=== PATIENT | female | born 2000 | race African-American/Black ===

== ENCOUNTER 2024-07-24 23:44 | Emergency (ER) | payer MEDICAID, SELFPAY ==
[2024-07-24 23:45] VITALS: BP 143/94; PULSE 79; RESP 16; TEMP 36.2; O2SAT 98; BMI 40.2
--- NOTE | 2024-07-25 00:23 | CT_ITS ---
PROCEDURE: STROKE CTA HEAD AND NECK W/CON 07/25/2024 REASON FOR EXAM: TRANSIENT EPISDOE OF CONFUSION TECHNIQUE: CTA imaging of the head and neck from the aortic arch to the skull vertex with out constrast and with intravenous contrast. Coronal and Sagittal reconstruction series were provided. 3D post processing with reformations, Maximum intensity projection (MIPs) Volume rendering and Shaded surface rendering was provided. CONTRAST: 100 cc Isovue 370 IV One or more dose reduction techniques were used (e.g., Automated exposure control, adjustment of the mA and/or kV according to patient size, use of iterative reconstruction technique). RADIATION DOSE SUMMARY: CTDlvol: 86 mGy DLP: 1482.79 mGycm COMPARISON: None available FINDINGS: Noncontrast head CT: No intracranial hemorrhage, mass effect or CT evidence of large vascular territory acute infarct. The ventricles are within limits and midline. CSF spaces appear within limits. The paranasal sinuses, mastoids and orbits appear within limits. CTA head and neck: [place] artifact from right-sided bolus. Motion artifact at the aortic arch with the arch and standard three-vessel origin appearing within limits as visualized. The vertebral arteries arise from the right brachiocephalic and left subclavian as expected and appear codominant. The cervical vertebrals are patent throughout with both contributing to the basilar artery. The right and left common, internal and external carotid arteries appear within limits without flow significant stenosis or dissection. The anterior, posterior and middle cerebral circulations appear intact. No vessel cut off, flow significant stenosis or aneurysm identified. Major dural venous sinuses appear within limits. Visualized upper lungs appear clear. CT/STROKE CTA Head AND Neck W/Con IMPRESSION: No intracranial hemorrhage, mass effect or CT evidence of large vascular territ ory acute infarct. CTA of the head and neck appears intact without flow significant stenosis, diss ection, aneurysm or vessel cut off as above. Findings discussed by phone by myself with Dr. Mcfarland at 1:30 a.m. 07/25/2024 Reading Location: [id number]
--- NOTE | 2024-07-25 00:24 | EX.ED.DYSGE1 ---
HPI History of Present Illness Chief Complaint: Confusion Informant: patient and spouse/S.O. Narrative Narrative: Patient is 23-year-old female that denies any significant past medical history presenting for an episode of confusion and unable to get her words out. Patient does report that she had a similar episode either in March 2024 or April of this year. At that time she went to [facility] emergency room where they did lab work and a CT of her brain. She states that they said everything was normal and recommend she follow-up with her primary care doctor. She does admit that she never followed up. Patient states she was driving home from work today and when she parked at her house and was getting out she started to feel confused. She states she was thinking about everything else. She went to the bathroom and afterwards when she went to her room she tried to talk to her boyfriend but could not get any words out. She states she just felt confused. She then she was able to say yes or no and then her speech slowly returned. No report of any slurring of her speech. No associated numbness or tingling. No tremor reported. No vision change. No syncope. She does state she had a stressful day at work but did not think it was overly stressful to cause symptoms like this. She does not take any medications. She denies any new supplements. Denies any family history of any neurologic issues. Feels that she is returned to baseline. Denies any associated headache. Came in for further evaluation given that this is the second time is happening and it was very alarming to her. [facility] Medical History no medical history Home Medications ?Medication ?Instructions ?Recorded ?Last Taken ?Type NK 07/25/24 Unknown History Allergy/AdvReac Type Severity Reaction Status Date / Time No Known Allergies Allergy Verified 07/24/24 23:47 Social History Smoking Status: Never smoker ROS ROS ED Constitutional Constitutional ED: Denies chills or fever(s) Eyes Eyes: Denies blurry vision or change in vision Cardiovascular Cardiovascular: Denies chest pain Respiratory/Chest Respiratory/Chest: Denies cough Gastrointestinal Gastrointestinal: Denies abdominal pain, nausea or vomiting Musculoskeletal Musculoskeletal: Denies arthralgias or myalgias Integumentary Denies rash Neurologic Neurologic: Reports other Details: episode of confusion, speech changes ; Denies headache(s), paresthesias or weakness Psychiatric Psychiatric: Denies anxiety or depression EXAM Physical Exam Const Vital Signs: 07/24/24 23:45 07/25/24 01:45 Temperature 97.1 F L Temperature Source Oral Pulse Rate 79 57 L Respiratory Rate 16 18 Blood Pressure 143/94 H 138/99 H Blood Pressure Mean 110 112 Pulse Ox 98 99 Oxygen Delivery Method Room Air Room Air Positive well nourished and well developed General Appearance ED: well developed and NAD HEENT Reports moist mucous membranes Eyes PERRL Neck supple and no JVD Neck Narrative: No nuchal rigidity Chest Wall inspection of chest normal Resp normal respiratory effort and clear to auscultation bilaterally Cardio regular rate, regular rhythm and no murmurs GI normal to inspection, nondistended, normoactive bowel sounds and non-tender Extremity normal to inspection General Extremety ED: Negative for edema General Extremity: Negative for edema Neuro oriented x3, CN's II-XII intact bilaterally and no sensory deficits noted Neuro Narrative: Patient is normal neurologic exam. NIH equals 0. Normal coordination. No tremor appreciated. Sensorium / Orientation: alert Sensory Exam: No sensory level loss detected Motor Exam: strength 5/5 throughout; Negative for general weakness Psych mental status grossly normal Mood & Affect: Negative for depressed or anxious Skin no rashes or lesions noted MDM MDM MDM Narrative Medical decision making narrative: Patient evaluated for an episode of confusion and difficulty speaking. States she has similar episode 3 to 4 months ago and was seen at [facility] emergency room. She reports that she had a workup including CT of the brain and blood work however [facility] do not see any records of a visit. Differential includes anxiety reaction, focal seizure, electrolyte abnormality, thyroid abnormality, arrhythmia and less likely ischemic stroke. Workup largely normal. Patient is mild anemia with hemoglobin 11.4. Do not think her symptoms are related to this however. BMP normal. TSH normal. CTA of the head neck does not show any acute process. Patient does go on to tell me that she did have a particularly stressful day at work compared to normal. Discussed that this could have been a stress response however this is a diagnosis of exclusion. Given that she has had 2 episodes we will give referral for neurology. At this time I do feel that she is safe for outpatient follow-up and does not require admission for this workup. Do not think this was a TIA based on her HPI. She notes that she is off tomorrow so she can rest. Given return precautions. Discharged home in stable condition. Cam's follow-up with your primary care doctor Lab Data Attestation: I reviewed the patient's lab results. Labs: Laboratory Results - last 24 hr 07/25/24 07/25/24 00:52 02:07 WBC 9.7 RBC 4.08 L Hgb 11.4 L Hct 35.5 L MCV 87.0 MCH 27.9 MCHC 32.1 RDW Std Deviation 41.7 RDW Coeff of Mishel 13.3 Plt Count 239 MPV 11.4 Immature Gran % (Auto) 0.300 Neut % (Auto) 48.8 Lymph % (Auto) 40.1 [place] % (Auto) 7.7 Eos % (Auto) 2.7 Baso % (Auto) 0.4 Absolute Neuts (auto) 4.7 Absolute Lymphs (auto) 3.89 Nucleated RBC % 0 Sodium 135 Potassium 4.3 Chloride 103 Carbon Dioxide 22.2 Anion Gap 10 BUN 13 Creatinine 0.71 Estim Creat Clear Calc 134.97 Est GFR (MDRD) Non-Af 122 BUN/Creatinine Ratio 18.3 Glucose 86 Calcium 9.3 TSH 3.260 Radiography Diagnostic Testing: Clinical Impression(s) from Imaging Studies Head/Neck CTA 07/25/24 00:23 IMPRESSION: No intracranial hemorrhage, mass effect or CT evidence of large vascular territory acute infarct. CTA of the head and neck appears intact without flow significant stenosis, dissection, aneurysm or vessel cut off as above. Findings discussed by phone by myself with Dr. Mcfarland at 1:30 a.m. 07/25/2024 Reading Location: [facility] Discharge Plan Triage Chief Complaint: Confusion ED Provider: Gema Hernandez Dx/Rx/DC Orders Clinical Impression: Transient alteration of awareness Instructions: ED ALOC, ED Confusion Prescriptions: No Action NK Stand Alone Forms: ED Work / School Excuse Primary Care Provider: Care Physician,No Primary Referrals: Ramón Alvarez DO [Non-Staff] - Rachid Rendon MD [Non-Staff -Ordering Privileges] - NOT,DEFINED [Non-Staff] - Activity Restrictions/Additional Instructions: Patient drinking plenty of fluids. Your workup today was largely normal. At this time we feel like it is safe for you to follow-up outpatient with your family doctor. If you do not have 1 you were given referral for 1. He also given referral for neurology given you have had 2 episodes like this. Print Language: Japanese Disposition Disposition: Home, Self Care
[2024-07-25 01:45] VITALS: BP 138/99; PULSE 57; RESP 18; O2SAT 99
[2024-07-25 02:07] LABS: Absolute Lymphocyte Count 3.89 X10^3/uL (0.83-4.51); Absolute Neutrophil Count 4.7 X10^3/uL (2.0-7.7); Basophil# 0.04 X10^3/uL; Basophil% 0.4 % (0-1); Eosinophil# 0.26 X10^3/uL; Eosinophils% 2.7 % (0-5); Hematocrit 35.5 % (37-47); Hemoglobin 11.4 g/dL (12.0-15.0); Lymphocyte # 3.89 X10^3/ul (0.83-4.51); Lymphocyte % 40.1 % (19-41); Mean Corp Hgb Conc 32.1 g/dL (32-36); Mean Corpuscular Hgb 27.9 pg (27.0-32.0); Mean Platelet Vol. 11.4 fl (6.2-12.0); Monocyte# 0.75 X10^3/uL; Monocyte% 7.7 % (0-10); NRBC Flagged by Analyzer 0 % (0-5); Neutrophil # 4.73 X10^3/uL (2.7-7.7); Neutrophil % 48.8 % (47-70); Platelet Count 239 K/mm3 (150-450); RBC Distribution Width CV 13.3 % (11.6-14.6); RBC Distribution Width SD 41.7 fl (35.1-43.9); Red Blood Count 4.08 M/mm3 (4.2-5.4); White Blood Count 9.7 K/mm3 (4.4-11.0)
[2024-07-25 02:31] LABS: Anion Gap 10 (5-15); BUN 13 mg/dL (4-19); BUN/Creat Ratio 18.3 RATIO (10-20); Calcium,Total 9.3 mg/dL (7.6-11.0); Carbon Dioxide 22.2 mmol/L (21.0-32.0); Chloride 103 mmol/L (98-108); Creatinine, Serum 0.71 mg/dL (0.70-1.20); EST Glomerular Filtration Rate 122 (>60); Estimated Creatinine Clearance 134.97 ml/min (50-250); Glucose 86 mg/dL (70-99); Potassium 4.3 mmol/L (3.3-5.1); Sodium Level 135 mmol/L (133-145)
[2024-07-25 03:09] VITALS: BP 138/81; PULSE 85; RESP 15; TEMP 36.6; O2SAT 96
== END 2024-07-25 03:13 | disposition home or self-care (01) ==
PROVIDERS: Emergency Provider Emergency Medicine; Visit Provider Emergency Medicine
DX: R40.4 Transient alteration of awareness (principal); Z56.6 Other physical and mental strain related to work; D64.9 Anemia, unspecified
CPT/HCPCS: 70496; 70498; 80048; 84443; 85025; 99283; Q9967; A4216

== ENCOUNTER 2025-03-29 01:07 | Emergency (ER) | payer SELFPAY ==
[2025-03-29 01:08] VITALS: BP 146/73; PULSE 67; RESP 18; TEMP 36.9; O2SAT 100; BMI 44.0
--- NOTE | 2025-03-29 01:38 | CT_ITS ---
PROCEDURE: BRAIN/HEAD WITHOUT CONTRAST 03/29/2025 REASON FOR EXAM: PAIN TECHNIQUE: Procedure Code: CTBR Modality: CT Procedure: BRAIN/HEAD WITHOUT CONTRAST Coronal and Sagittal reconstruction series were provided. One or more dose reduction techniques were used (e.g., Automated exposure control, adjustment of the mA and/or kV according to patient size, use of iterative reconstruction technique. RADIATION DOSE SUMMARY: CTDI Vol 44.99 mGy DLP :846.73 mGycm COMPARISON: 25-Jul-2024 CT report FINDINGS: The visualized brain parenchyma shows normal appearance. No focal parenchymal abnormalities are demonstrated. Huang-white matter differentiation is maintained. Normal CT appearance of the posterior fossa structures. No intracerebral or extra-axial hemorrhage. Faint high fronto-parietal sulcal densities, possibly artifactual. No midline shifts or deformity. Normal size and configuration of the cerebral ventricles. No definite calvarial fractures. The osseous structures in the skull base are unremarkable. Scanned paranasal sinuses are unremarkable. CT/Brain/Head without Contrast IMPRESSION: No intracerebral or extra-axial hemorrhage. No acute territorial cerebrovascular abnormalities. If clinical symptoms persis t, further evaluation with MRI may be considered as clinically warranted. Reading [facility]
[2025-03-29] MEDS: 0.9% Normal Saline (1000mL) 1,000 ML 999 ML IV (02:00)
[2025-03-29 02:27] LABS: Hematocrit 37.3 % (37-47); Hemoglobin 11.5 g/dL (12.0-15.0); Immature Granulocytes Count 0.050 X10^3/uL (0.0-0.0); Mean Corp Hgb Conc 30.8 g/dL (32-36); Mean Corpuscular Volume 88.4 fL (81-99); Mean Platelet Vol. 10.9 fl (6.2-12.0); NRBC Flagged by Analyzer 0 % (0-5); Platelet Count 264 K/mm3 (150-450); RBC Distribution Width CV 14.1 % (11.6-14.6); RBC Distribution Width SD 45.5 fl (35.1-43.9); Red Blood Count 4.22 M/mm3 (4.2-5.4); White Blood Count 12.6 K/mm3 (4.4-11.0)
--- NOTE | 2025-03-29 02:45 | EDS_ITS ---
HPI History of Present Illness Chief Complaint: Headache Narrative Narrative: Patient was seen and examined after presenting to ED for feeling like she is in a fog is having some changes to her vision mostly blurred vision she reports that this has been ongoing for a few weeks her significant other who is present with her in the room states that she has also been having off-and-on headaches not thunderclap in nature not the worst headache of her life but she has been having headaches. PFSH PFSH Medical History no medical history Home Medications ?Medication ?Instructions ?Recorded ?Last Taken ?Type NK 07/25/24 Unknown History Allergy/AdvReac Type Severity Reaction Status Date / Time No Known Allergies Allergy Verified 03/29/25 01:11 Surgical History no surgical history Social History Smoking Status: Never smoker ROS ROS ED ROS Narrative Pertinent Positives: Blurred vision headaches feeling like she is in a fog Pertinent Negatives: Trauma fevers chills neck pain or stiffness difficulty swallowing dropping things numbness tingling speech changes nausea vomiting body aches The remainder of review of systems negative unless otherwise stated in the HPI above. Systems reviewed including constitutional, psychiatric, cardiovascular, respiratory, integument, HENT, gastrointestinal. EXAM Physical Exam Narrative Exam Narrative: Afebrile hemodynamically stable does not appear toxic or in distress normocephalic atraumatic pupils equal round reactive to light EOMI. No nystagmus. Normal range of motion of the head and neck. No focal neurodeficits speech is clear moves all EXTR extremities appropriately no cerebellar signs Const Vital Signs: 03/29/25 01:08 Temperature 98.4 F Temperature Source Oral Pulse Rate 67 Respiratory Rate 18 Blood Pressure 146/73 H Blood Pressure Mean 97 Pulse Ox 100 Oxygen Delivery Method Room Air MDM MDM MDM Narrative Medical decision making narrative: Nursing notes, triage notes, available previous documentation, and vital signs were reviewed. Any discrepancies noted were addressed. Differential Diagnoses: Not meningitis not intracranial bleed such as subarachnoid hemorrhage we will evaluate for any evidence of a mass does not seem like he was trauma related to either she does not have a seizure history no family history of seizures either does not describe ever having a postictal state Interventions: Fluids Given: 1 L normal saline Labs Reviewed: Slight leukocytosis 12.6 hemoglobin 11.5 platelets are 264. No electrolyte abnormality or renal insufficiency she is not Imaging Reviewed: Personally reviewed and interpreted by me: CT of the head I do not see any obvious intracranial bleed I do not see any obvious mass either. Official interpretation for CT of the head without acute pathology Previous Documentation Reviewed: None available or applicable at this time. ED Course: Patient presenting with symptoms as described above we are getting some labs for checking a CT of the head barring a significant findings patient will be given referral to neurology outpatient she can also follow-up with her primary care. Patient's workup was fairly unremarkable besides a slight leukocytosis she will receive a referral to neurology return precautions follow-up recommendations provided she is stable for discharge home. This note was made utilizing voice recognition software. All attempts were made to correct spelling or other errors prior to note completion. However, due to the fast-paced nature of emergency medicine, some errors may still be present. Lab Data Labs: Laboratory Results - last 24 hr 03/29/25 02:20 WBC 12.6 H RBC 4.22 Hgb 11.5 L Hct 37.3 MCV 88.4 MCH 27.3 MCHC 30.8 L RDW Std Deviation 45.5 H RDW Coeff of Mishel 14.1 Plt Count 264 MPV 10.9 Immature Gran % (Auto) 0.400 Neut % (Auto) 54.7 Lymph % (Auto) 35.4 [place] % (Auto) 6.3 Eos % (Auto) 2.6 Baso % (Auto) 0.6 Absolute Neuts (auto) 6.9 Absolute Lymphs (auto) 4.46 Nucleated RBC % 0 Sodium 138 Potassium 4.2 Chloride 105 Carbon Dioxide 23.9 Anion Gap 10 BUN 16 Creatinine 0.74 Estim Creat Clear Calc 135.36 Est GFR (MDRD) Non-Af 115 BUN/Creatinine Ratio 21.1 H Glucose 81 Calcium 9.2 Serum , Qual NEGATIVE Radiography Diagnostic Testing: Clinical Impression(s) from Imaging Studies Brain CT 03/29/25 01:38 IMPRESSION: No intracerebral or extra-axial hemorrhage. No acute territorial cerebrovascular abnormalities. If clinical symptoms persist, further evaluation with MRI may be considered as clinically warranted. Reading Location: [place] [id number] Discharge Plan Triage Chief Complaint: Headache ED Provider: Reinaldo Delacruz Dx/Rx/DC Orders Clinical Impression: Transient blurring of vision, Headache Instructions: ED Headache Unspecified Prescriptions: No Action NK Primary Care Provider: Care Physician,No Primary Referrals: Bobby Patton MD [Med Staff - Consulting, Neurology] - As soon as possible Elsie Macdonald MD [Med Staff - Diamond Expert, Internal Medicine] - As soon as possible Care Physician,No Primary [Primary Care Provider, Medical] Activity Restrictions/Additional Instructions: Set up an appointment with neurology follow-up with the primary care doctor if you are having worsening symptoms do not hesitate to return please Print Language: Slovenian Disposition Disposition: Home, Self Care
[2025-03-29 02:55] LABS: Anion Gap 10 (5-15); BUN 16 mg/dL (4-19); BUN/Creat Ratio 21.1 RATIO (10-20); Calcium,Total 9.2 mg/dL (7.6-11.0); Carbon Dioxide 23.9 mmol/L (21.0-32.0); Chloride 105 mmol/L (98-108); Estimated Creatinine Clearance 135.36 ml/min (50-250); Glucose 81 mg/dL (70-99); Potassium 4.2 mmol/L (3.3-5.1)
[2025-03-29 02:56] LABS: Internal QC Validated? YES +Cl - CLEAR BKGD; Pregnancy, Serum, hCG Quali. NEGATIVE Negative
--- OUTSIDE RECORDS SUMMARY | 2025-03-29 03:41 | XMS RPT_ITS | CCD ---
Author Organization [facility] Care Team Providers Care System Architect Name Role Phone [employer] ATTENDANT [employer], LESLIE Primary Care Physician [employer] ATTEND[employer], LESLIE Attending Unavailabl e [employer] W[employer] ATTENDANT [employer], LESLIE Primary Care Unavailabl e [employer] WASH ATTENDANT [employer]OM[employer]IC, LESLIE Attending Unavailabl e [employer] WASH ATTENDANT [employer]OM[employer], LESLIE Primary Care Unavailabl e [employer] W[employer] ATTENDANT [employer]OM[employer], LESLIE Attending Unavailabl e [employer] W[employer] ATTENDANT [employer]OMATIC, LESLIE Primary Care Unavailabl e DORI BAER, TREMAYNE Bey Attending Unavailable [employer] W[employer] ATTENDANT [employer], LESLIE Primary Care Unavailabl e Dr. Gema Hernandez DO Emergency Provider Care Physician, No Primary Primary Care Provider Unavailable Gema Hernandez Attending Unavailable Care Physician, No Primary Primary Care Unava ilable [employer] ATTENDANT [employer], LESLIE Primary Care Unavailabl e [employer] W[employer] ATTENDANT [employer]IC, CORRIE Terry Attending Unavai lable [employer] W[employer] ATTENDANT [employer], LESLIE Attending Unavailabl e [employer] W[employer] ATTENDANT [employer], LESLIE Primary Care Unavailabl e KISHORE BAER, AMBER Hutton Attending Unavail able [employer] ATTENDANT [employer], LESLIE Primary Care Unavailabl e Medications Current Medications Medication Drug Class(es) Dates Sig (Normalized) Sig (Original) amoxicillin 875 mg / clavulanate 125 mg oral tablet (2 sources) Penicillin-class Antibacterial Start: 10-02-2023 End: 10-12-2023 take 1 tablet by mouth every twelve hours amoxicillin-clav ulanate 875 mg-125 mg oral tablet 1 tab(s), Oral, q12h, X 10 day(s), # 20 tab(s), 0 Refill(s), 10/12/23 5:29:00 AM EDT, Pharmacy: [facility] #[id number], 158, cm, 08/08/23 9:35:00 EDT, Height, 91, kg, 08/08/23 9:35:00 EDT, Dosing Weight Start Date: 10/02/23 Stop Date: 10/12/23 Status: Ordered clindamycin 0.01 mg/mg topical gel (1 source) Lincosamide Antibacterial Start: 08-06-2024 Clindagel 1% topical gel Dose = 1 bolivar, Topical, BID, PRN Rash, prn use- BID x 7 days, # 30 gram(s), 1 Refill(s), Pharmacy: [facility]acy #[id number], 158, cm, 08/06/24 11:10:00 EDT, Height, kg, 08/06/24 11:10:00 EDT, Dosing Weight Start Date: 08/06/24 Status: Ordered Quantity: 30.0 Unit: g Repeat number: 2 ibuprofen 20 mg/ml oral suspension (3 sources) Nonsteroidal Anti-inflammatory Drug Start: 05-31-2024 take 1 dose by mouth every six hours as needed ibuprofen 100 mg/5 mL oral suspension Dose : 50 mg = 2.5 mL, Oral, q6hr, PRN for pain, # 240 mL, 0 Refill(s) Start Date: 05/31/24 Status: Ordered Quantity: 240.0 Unit: mL Repeat number: 1 Start: 10-02-2023 End: 10-13-2023 ibuprofen 600 mg oral tablet Dose : 600 mg = 1 tab(s), Oral, q6h, PRN for pain, Take with food or milk., # 20 tab(s), 0 Refill(s), 10/13/23 5:29:00 AM EDT, Pharmacy: [facility] #[id number], 158, cm, 08/08/23 9:35:00 EDT, Height, kg, 08/08/23 9:35:00 EDT, Dosing Weight Start Date: 10/02/23 Stop Date: 10/13/23 Status: Ordered nitrofurantoin, macrocrystals 25 mg / nitrofurantoin, monohydrate 75 mg oral capsule (2 sources) Nitrofuran Antibacterial Start: 08-08-2024 End: 08-11-2024 nitrofurantoin macrocrystals-monohydrate 100 mg oral capsule Dose : 100 mg = 1 cap(s), Oral, BID, Take with food, X 3 day(s), # 6 cap(s), 0 Refill(s), 08/11/24 2:00:00 PM EDT, Pharmacy: [facility]/pharmacy #[id number], 158, cm, 08/06/24 11:10:00 EDT, Height, 100.4, kg, 08/06/24 11:10:00 EDT, Dosing Weight Start Date: 08/08/24 Stop Date: 08/11/24 Status: Ordered Quantity: 6.0 Unit: cap(s) Repeat number: 1 Start: 12-21-2023 End: 12-28-2023 nitrofurantoin macrocrystals -monohydrate 100 mg oral capsule Dose : 100 mg = 1 cap(s), Oral, BID, Take with food, X 7 day(s), # 14 cap(s), 0 Refill(s), 12/28/23 5:08:00 PM EDT, Pharmacy: [facility]/pharmacy #[id number], UTI symptoms, 157, cm, 12/21/23 13:48:00 EDT, Height, 95.7, kg, 12/21/23 13:48:00 EDT, Dosing Weight Start Date: 12/21/23 Stop Date: 12/28/23 Status: Ordered spironolactone 25 mg oral tablet (1 source) Aldosterone Antagonist Start: 08-06-2024 spironolactone 25 mg oral tablet Dose : 25 mg = 1 tab(s), Oral, qDay, Take with food, # 30 tab(s), 2 Refill(s), Pharmacy: [facility]/pharmacy #[id number], 158, cm, 08/06/24 11:10:00 EDT, Height, kg, 08/06/24 11:10:00 EDT, Dosing Weight Start Date: 08/06/24 Status: Ordered Quantity: 30.0 Unit: tab(s) Repeat number: 3 Problems Active Problems Problem Classification Problem Date Documented Date Episodic/Chronic Immunizations and screening for infectious disease (2 sources) Encounter for screening for infections with a predominantly sexual mode of transmission; Translations: [Encounter for screening for infections with a predominantly sexual mode of transmission] Onset: 08-08-2023 Episodic Other female genital disorders (2 sources) Other specified noninflammatory disorders of vagina; Translations: [Other specified noninflammatory disorders of vagina] Onset: 10-10-2023 Episodic Other screening for suspected conditions (not mental disorders or infectious disease) (4 sources) Encounter for screening for cardiovascular disorders; Translations: [Encounter for screening for diabetes mellitus] Onset: 08-08-2023 Episodic Other skin disorders (2 sources) Hirsutism; Translations: [Hirsutism] Onset: 08-06-2024 Episodic Other skin disorders (2 sources) Hidradenitis suppurativa; Translations: [Hidradenitis suppurativa] Onset: 08-06-2024 Episodic Other skin disorders (1 source) Hidradenitis suppurativa 08-06-2024 Episodic Other skin disorders (1 source) Hirsutism 08-06-2024 Episodic Otitis media and related conditions (1 source) Otitis media; Translations: [Otitis media, unspecified, left ear] Onset: 10-02-2023 Episodic Residual codes; unclassified (1 source) Disorientated; Translations: [Disorientation, unspecified] Onset: 02-29-2024 Episodic Residual codes; unclassified (1 source) Transient alteration of awareness; Translations: [Transient alteration of awareness] 07-25-2024 Episodic Residual codes; unclassified (1 source) Disorientation, unspecified; Translations: [Disorientation, unspecified] Onset: 07-31-2024 Episodic Spondylosis; intervertebral disc disorders; other back problems (1 source) Low back pain 08-06-2024 Episodic Unclassified (7 sources) Cancer cervix screening status 08-01-2023 Unclassified (20 sources) Patient encounter status 08-01-2023 Unclassified (1 source) Low back pain, unspecified; Translations: [Low back pain, unspecified] Onset: 08-06-2024 Past or Other Problems Problem Classification Problem Date Documented Da te Episodic/Chronic Genitourinary symptoms and ill-defined conditions (17 sources) Increased frequency of urination; Translations: [Urgent desire to urinate] Onset: 10-03-2023 10-03-2023 Episodic Unclassified (1 source) Low back pain, unspecified; Translations: [Low back pain, unspecified] Onset: 08-06-2024 Results Test Name Value Interpretation Reference Range Facility AZTREONAM:SUSC:PT:ISOLATE:OR DQN:MICon 08-06-2024 Aztreonam VON [Susc] >100,000 cfu/ml Escherichia coli >100,000 cfu/ml Group B Beta Hemolytic Strep (Strep agalactiae) Sensitivity testing is not recommended for one of the following reasons: 1. Established susceptibility patterns are available or 2. Interpretative criteria are not available. [facility] Work Phone: Aztreonam VON [Susc]on 08-06 Escherichia coli Escherichia coli [facility] Work Phone: Absolute neutrophil countOrd ered By: Gema Hernandez on 07-25-2024 Neutrophils (Bld) [#/Vol] 4.7 10*3/uL 2.0-7.7 [facility] Anion gap in Serum or Plasma Ordered By: Gema Hernandez on 07-25-2024 Anion gap [Moles/Vol] 10 mmol/L 5-[address] [facility] BUN/creatinine ratioOrdered By: Gema Hernandez on 07-25-2024 Urea nitrogen/Creatinine [Mass ratio] 18.3 mg/mg - [facility] Basic Metabolic Profile (BMP )on 07-25-2024 BUN/CRE 18.3 RATIO Normal - [facility] Comment on above: Performed By: #### L 100.0100, L500.2500 #### [facility] [address] [place], [address] Calcium [Mass/Vol] 9.3 mg/dL Normal 7.6-11.0 [facility] Comment on above: Performed By: #### L 100.0100, L500.2500 #### [facility] [address] [place], [address] Chloride [Moles/Vol] 103 mmol/L Normal 98-108 [facility] Comment on above: Performed By: #### L 100.0100, L500.2500 #### [facility] [address] [place], [address] CO2 [Moles/Vol] 22.2 mmol/L Normal 21.0-32.0 [facility] Comment on above: Performed By: #### L 100.0100, L500.2500 #### [facility] [address] [place], [address] Creatinine [Mass/Vol] 0.71 mg/dL Normal 0.70-1.[address] [facility] Comment on above: Performed By: #### L 100.0100, L500.2500 #### [facility] [address] [place], [address] ECRCL 134.97 ml/min Normal 50-250 [facility] Comment on above: Performed By: #### L 100.0100, L500.2500 #### [facility] [address] [place], [address] GAP 10 Normal 5-15 [facility] Comment on above: Performed By: #### L 100.0100, L500.2500 #### [facility] [address] [place], [address] GFR/1.73 sq M.predicted among non-blacks MDRD (S/P/Bld) [Vol rate/Area] 122 mL/min/{1.73_m2} Normal >60 [facility] Comment on above: Result Comment: mL/m in/1.73m2 CKD-EPI Creatinine Equation (2020) Performed By: #### L 100.0100, L500.2500 #### [facility] [address] [place], [address] Glucose [Mass/Vol] 86 mg/dL Normal 70-99 [facility] Comment on above: Performed By: #### L 100.0100, L500.2500 #### [facility] [address] [place], [address] Potassium [Moles/Vol] 4.3 mmol/L Normal 3.3-5.[address] [facility] Comment on above: Performed By: #### L 100.0100, L500.2500 #### [facility] [address] [place], [address] Sodium [Moles/Vol] 135 mmol/L Normal 133-145 [facility] Comment on above: Performed By: #### L 100.0100, L500.2500 #### [facility] [address] [place], [address] Urea nitrogen [Mass/Vol] 13 mg/dL Normal 4-19 [facility] Comment on above: Performed By: #### L 100.0100, L500.2500 #### [facility] [address] [place], [address] Basophil percentageOrdered B y: Gema Hernandez on 07-25-2024 Basophils/100 WBC (Bld) 0.4 % 0-1 [facility] CBC W/Diff, Automatedon 07-09 Absolute Lymph 3.89 X10 3/uL Normal 0.83-4.51 [facility] Comment on above: Performed By: #### L 100.0100, L500.2500 #### [facility] [address] [place], [address] Absolute Neut 4.7 X10 3/uL Normal 2.0-7.7 [facility] Comment on above: Performed By: #### L 100.0100, L500.2500 #### [facility] [address] [place], [address] Basophils/100 WBC (Bld) 0.4 % Normal 0-1 [facility] Comment on above: Performed By: #### L 100.0100, L500.2500 #### [facility] [address] [place], [address] Eosinophils/100 WBC (Bld) 2.7 % Normal 0-5 [facility] Comment on above: Performed By: #### L 100.0100, L500.2500 #### [facility] [address] [place], [address] Erythrocyte distribution width (RBC) [Ratio] 13.3 % Normal 11.6-14.6 [facility] Comment on above: Performed By: #### L 100.0100, L500.2500 #### [facility] [address] [place], [address] Hematocrit (Bld) [Volume fraction] 35.5 % Low 37-47 [facility] Comment on above: Performed By: #### L 100.0100, L500.2500 #### [facility] [address] [place], [address] Hemoglobin (Bld) [Mass/Vol] 11.4 g/dL Low 12.0-15.0 [facility] Comment on above: Performed By: #### L 100.0100, L500.2500 #### [facility] [address] [place], [address] IG% 0.300 Normal 0.0-0.9 [facility] Comment on above: Result Comment: IG% - Immature Granulocytes (promyelocytes, myelocytes and metamyelocytes) > 1% indicates that a LEFT SHIFT is Present. Performed By: #### L 100.0100, L500.2500 #### [facility] [address] [place], [address] Lymphocytes/100 WBC (Bld) 40.1 % Normal 19-41 [facility] Comment on above: Performed By: #### L 100.0100, L500.2500 #### [facility] [address] [place], [address] MCH (RBC) [Entitic mass] 27.9 pg Normal 27.0-32.0 [facility] Comment on above: Performed By: #### L 100.0100, L500.2500 #### [facility] [address] [place], [address] MCHC (RBC) [Mass/Vol] 32.1 g/dL Normal 32-[address] [facility] Comment on above: Performed By: #### L 100.0100, L500.2500 #### [facility] [address] [place], [address] MCV (RBC) [Entitic vol] 87.0 fL Normal 81-99 [facility] Comment on above: Performed By: #### L 100.0100, L500.2500 #### [facility] [address] [place], [address] Monocytes/100 WBC (Bld) 7.7 % Normal 0-10 [facility] Comment on above: Performed By: #### L 100.0100, L500.2500 #### [facility] [address] [place], [address] Neutrophils/100 WBC (Bld) 48.8 % Normal 47-70 [facility] Comment on above: Performed By: #### L 100.0100, L500.2500 #### [facility] [address] [place], [address] Nucleated RBC (Bld) [#/Vol] 0 10*3/uL Normal 0-5 [facility] Comment on above: Performed By: #### L 100.0100, L500.2500 #### [facility] [address] [place], [address] Platelet mean volume (Bld) [Entitic vol] 11.4 fL Normal 6.2-12.0 [facility] Comment on above: Performed By: #### L 100.0100, L500.2500 #### [facility] [address] [place], [address] Platelets (Bld) [#/Vol] 239 10*3/uL Normal 150-450 [facility] Comment on above: Performed By: #### L 100.0100, L500.2500 #### [facility] [address] [place], [address] RBC (Bld) [#/Vol] 4.08 10*6/uL Low 4.2-5.4 [facility] Comment on above: Performed By: #### L 100.0100, L500.2500 #### [facility] [address] [place], [address] RDW SD 41.7 fl Normal 35.1-43.9 [facility] Comment on above: Performed By: #### L 100.0100, L500.2500 #### [facility] [address] [place], [address] WBC (Bld) [#/Vol] 9.7 10*3/uL Normal 4.4-11.0 [facility] Comment on above: Performed By: #### L 100.0100, L500.2500 #### [facility] [address] [place], [address] Carbon dioxide, total [Moles /volume] in Central venous bloodOrdered By: Gema Hernandez on 07-25-2024 CO2 [Moles/Vol] 22.2 mmol/L 21.0-32.0 [facility] Chloride assayOrdered By: Augustine Hernandez on 07-25-2024 Chloride [Moles/Vol] 103 mmol/L 98-108 [facility] Emergency Department Summary on 07-25-2024 Emergency Department Summary [facility] Medical Records Department [address] [place] [address] Emergency Department Summary 07/25/24 MR#: [id number] Acct: [id number] Name: RA MARTIN CAMPOS Rep #: [id number] 05 : 2000 23 From: Gema Hernandez DO PCP: Care Physician,No Primary Status:DEP ER Location: ED HPI History of Present Illness Chief Complaint: Confusion Informant: patient and spouse/S.O. Narrative Narrative: Patient is 23-year-old female that denies any significant past medical history presenting for an episode of confusion and unable to get her words out. Patient does report that she had a similar episode either in March 2024 or April of this year. At that time she went to [facility] emergency room where they did lab work and a CT of her brain. She states that they said everything was normal and recommend she follow-up with her primary care doctor. She does admit that she never followed up. Patient states she was driving home from work today and when she parked at her house and was getting out she started to feel confused. She states she was thinking about everything else. She went to the bathroom and afterwards when she went to her room she tried to talk to her boyfriend but could not get any words out. She states she just felt confused. She then she was able to say yes or no and then her speech slowly returned. No report of any slurring of her speech. No associated numbness or tingling. No tremor reported. No vision change. No syncope. She does state she had a stressful day at work but did not think it was overly stressful to cause symptoms like this. She does not take any medications. She denies any new supplements. Denies any family history of any neurologic issues. Feels that she is returned to baseline. Denies any associated headache. Came in for further evaluation given that this is the second time is happening and it was very alarming to her. [facility] Medical History no medical history Home Medications ???Medication ???Instructions ???Recorded ???Last Taken ???Type NK 07/25/24 Unknown History Allergy/AdvReac Type Severity Reaction Status Date / Time No Known Allergies Allergy Verified 07/24/24 23:47 Social History Smoking Status: Never smoker ROS ROS ED Constitutional Constitutional ED: Denies chills or fever(s) Eyes Eyes: Denies blurry vision or change in vision Cardiovascular Cardiovascular: Denies chest pain Respiratory/Chest Respiratory/Chest: Denies cough Gastrointestinal Gastrointestinal: Denies abdominal pain, nausea or vomiting Musculoskeletal Musculoskeletal: Denies arthralgias or myalgias Integumentary Denies rash Neurologic Neurologic: Reports other Details: episode of confusion, speech changes ; Denies headache(s), paresthesias or weakness Psychiatric Psychiatric: Denies anxiety or depression EXAM Physical Exam Const Vital Signs: 07/24/24 23:45 07/25/24 01:45 Temperature 97.1 F L Temperature Source Oral Pulse Rate 79 57 L Respiratory Rate 16 18 Blood Pressure 143/94 H 138/99 H Blood Pressure Mean 110 112 Pulse Ox 98 99 Oxygen Delivery Method Room Air Room Air Positive well nourished and well developed General Appearance ED: well developed and NAD HEENT Reports moist mucous membranes Eyes PERRL Neck supple and no JVD Neck Narrative: No nuchal rigidity Chest Wall inspection of chest normal Resp normal respiratory effort and clear to auscultation bilaterally Cardio regular rate, regular rhythm and no murmurs GI normal to inspection, nondistended, normoactive bowel sounds and non-tender Extremity normal to inspection General Extremety ED: Negative for edema General Extremity: Negative for edema Neuro oriented x3, CN's II-XII intact bilaterally and no sensory deficits noted Neuro Narrative: Patient is normal neurologic exam. NIH equals 0. Normal coordination. No tremor appreciated. Sensorium / Orientation: alert Sensory Exam: No sensory level loss detected Motor Exam: strength 5/5 throughout; Negative for general weakness Psych mental status grossly normal Mood Affect: Negative for depressed or anxious Skin no rashes or lesions noted MDM MDM MDM Narrative Medical decision making narrative: Patient evaluated for an episode of confusion and difficulty speaking. States she has similar episode 3 to 4 months ago and was seen at [facility] emergency room. She reports that she had a workup including CT of the brain and blood work however when reviewed on [facility] I do not see any records of a visit. Differential includes anxiety reaction, focal seizure, electrolyte abnormality, thyroid abnormality, arrhythmia and less likely ischemic stroke. Workup largely (more content not included)... Normal [facility] Eosinophil percentageOrdered By: Gema Hernandez on 07-25-2024 Eosinophils/100 WBC (Bld) 2.7 % 0-5 [facility] Erythrocyte distribution wid th (RBC) [Ratio]Ordered By: Gema Hernandez on 07-25-2024 Erythrocyte distribution width (RBC) [Entitic vol] 41.7 fL 35.1-43.9 [facility] Erythrocyte distribution wid th ratioOrdered By: Gema Hernandez on 07-25-2024 Erythrocyte distribution width (RBC) [Ratio] 13.3 % 11.6-14.6 [facility] Estimation of creatinine ling aranceOrdered By: Gema Hernandez on 07-25-2024 Estimated Creatinine Clearance Calc 134.97 ml/min 50-250 [facility] GFR/1.73 sq M.predicted benito g non-blacks MDRD (S/P/Bld) [Vol rate/Area]Ordered By: Gema Hernandez on 07-25-2024 Estimated GFR (MDRD) Non-Af Amer 122 >60 [facility] Comment on above: mL/min/1.73m2 CKD-EP I Creatinine Equation (2020) Hematocrit Auto (Bld) [Volum e fraction]Ordered By: Gema Hernandez on 07-25-2024 Hematocrit (Bld) [Volume fraction] 35.5 % Low 37-47 [facility] Hemoglobin measurementOrdere d By: Gema Hernandez on 07-25-2024 Hemoglobin (Bld) [Mass/Vol] 11.4 g/dL Low 12.0-15.0 [facility] Immature granulocytes/100 WB C Auto (Bld)Ordered By: Gema Hernandez on 07-25-2024 Immature granulocytes/100 WBC (Bld) 0.300 % 0.0-0.9 [facility] Comment on above: IG% - Immature Granu locytes (promyelocytes, myelocytes and metamyelocytes) > 1% indicates that a LEFT SHIFT is Present. Lymphocytes Auto (Unsp spec) [#/Vol]Ordered By: Gema Hernanedz on 07-25-2024 Lymphocytes (Bld) [#/Vol] 3.89 10*3/uL 0.83-4.51 [facility] Lymphocytes/100 WBC Auto (Un sp spec)Ordered By: Gema Hernandez on 07-25-2024 Lymphocytes/100 WBC (Bld) 40.1 % 19-41 [facility] MCV (mean corpuscular volume ) determinationOrdered By: Gema Hernandez on 07-25-2024 MCV (RBC) [Entitic vol] 87.0 fL 81-99 [facility] Mean corpuscular hemoglobin (MCH) determinationOrdered By: Gema Hernandez on 07-25-2024 MCH (RBC) [Entitic mass] 27.9 pg 27.0-32.0 [facility] Mean corpuscular hemoglobin concentration (MCHC) determinationOrdered By: Gema Hernandez on 07-25-2024 MCHC (RBC) [Mass/Vol] 32.1 g/dL 32-[address] [facility] Mean platelet volume determi nationOrdered By: Gema Hernandez on 07-25-2024 Platelet mean volume (Bld) [Entitic vol] 11.4 fL 6.2-12.0 [facility] Monocyte percentageOrdered B y: Gema Hernandez on 07-25-2024 Monocytes/100 WBC (Bld) 7.7 % 0-10 [facility] Neutrophil percentageOrdered By: Gema Hernandez on 07-25-2024 Neutrophils/100 WBC (Bld) 48.8 % 47-70 [facility] Nucleated red blood cell per centageOrdered By: Gema Hernandez on 07-25-2024 Nucleated RBC/100 WBC (Bld) [Ratio] 0 % 0-5 [facility] Platelet countOrdered By: Augustine Hernandez on 07-25-2024 Platelets (Bld) [#/Vol] 239 10*3/uL 150-450 [facility] Potassium (Unsp spec) [Mass/ Vol]Ordered By: Gema Hernandez on 07-25-2024 Potassium [Moles/Vol] 4.3 mmol/L 3.3-5.[address] [facility] RBC Auto (Bld) [#/Vol]Ordere d By: Gema Hernandez on 07-25-2024 RBC (Bld) [#/Vol] 4.08 10*6/uL Low 4.2-5.4 [facility] STROKE CTA Head AND Neck W/C onon 07-25-2024 STROKE CTA Head AND Neck W/Con [facility] [address] [place] [id number] STROKE CTA Head AND Neck W/Con MR#: [id number] Acct: [id number] Name: RA MARTIN CAMPOS Rep #: [id number] 15 : 2000 F 23 From: Eugene Mccoy MD PCP: Care Physician,No Primary Status: REG ER Study: STROKE CTA Head AND Neck W/Con Date of Exam: 0 07/25/24 Exam# [id number] Ordering Dr: Gema Hernandez DO PROCEDURE: STROKE CTA HEAD AND NECK W/CON 07/25/2024 REASON FOR EXAM: TRANSIENT EPISDOE OF CONFUSION TECHNIQUE: CTA imaging of the head and neck from the aortic arch to the skull vertex with out constrast and with intravenous contrast. Coronal and Sagittal reconstruction series were provided. 3D post processing with reformations, Maximum intensity projection (MIPs) Volume rendering and Shaded surface rendering was provided. CONTRAST: 100 cc Isovue 370 IV One or more dose reduction techniques were used (e.g., Automated exposure control, adjustment of the mA and/or kV according to patient size, use of iterative reconstruction technique). RADIATION DOSE SUMMARY: CTDlvol: 86 mGy DLP: 1482.79 mGycm COMPARISON: None available FINDINGS: Noncontrast head CT: No intracranial hemorrhage, mass effect or CT evidence of large vascular territory acute infarct. The ventricles are within limits and midline. CSF spaces appear within limits. The paranasal sinuses, mastoids and orbits appear within limits. CTA head and neck: [place] artifact from right-sided bolus. Motion artifact at the aortic arch with the arch and standard three-vessel origin appearing within limits as visualized. The vertebral arteries arise from the right brachiocephalic and left subclavian as expected and appear codominant. The cervical vertebrals are patent throughout with both contributing to the basilar artery. The right and left common, internal and external carotid arteries appear within limits without flow significant stenosis or dissection. The anterior, posterior and middle cerebral circulations appear intact. No vessel cut off, flow significant stenosis or aneurysm identified. Major dural venous sinuses appear within limits. Visualized upper lungs appear clear. CT/STROKE CTA Head AND Neck W/Con IMPRESSION: No intracranial hemorrhage, mass effect or CT evidence of large vascular territory acute infarct. CTA of the head and neck appears intact without flow significant stenosis, dissection, aneurysm or vessel cut off as above. Findings discussed by phone by myself with Dr. Mcfarland at 1:30 a.m. 07/25/2024 Reading Location: [id number] CC: Dr. Gema Hernandez, DO; No Primary Care Physician Personal Support Worker: Signed Normal [facility] Serum creatinine measurement (mass/volume)Ordered By: Gema Hernandez on 07-25-2024 Creatinine [Mass/Vol] 0.71 mg/dL 0.70-1.[address] [facility] Serum glucose measurement (m ass/volume)Ordered By: Gema Hernandez on 07-25-2024 Glucose [Mass/Vol] 86 mg/dL 70-99 [facility] Serum or plasma calcium eyad urement (mass/volume)Ordered By: Gema Hernandez on 07-25-2024 Calcium [Mass/Vol] 9.3 mg/dL 7.6-11.0 [facility] Serum or plasma urea nitroge n measurement (mass/volume)Ordered By: Gema Hernandez on 07-25-2024 Urea nitrogen [Mass/Vol] 13 mg/dL 4-19 [facility] Sodium levelOrdered By: Yanet Hernandez on 07-25-2024 Sodium [Moles/Vol] 135 mmol/L 133-145 [facility] TSH DL <= 0.005 mIU/L QnOrde red By: Gema Hernandez on 07-25-2024 Thyroid Stimulating Hormone (TSH) 3.260 uIU/mL 0.300-4.200 [facility] Thyroid Stim Hormone (TSH)on 07-25-2024 TSH 3.260 uIU/mL Normal 0.300-4.200 [facility] Comment on above: Performed By: #### L [phone] #### [facility] Laboratory [facility] [place], [address] White blood cell (WBC) count Ordered By: Gema Hernandez on 07-25-2024 WBC (Bld) [#/Vol] 9.7 10*3/uL 4.4-11.0 [facility] .Auto Diffon 02-29-2024 Basophil, Absolute 0.0 10 3/mcL Normal 0.0-0.2 [facility] Comment on above: Performed By: #### M DW, ANEU, CBC, GFR, ADIFF, BMP #### [address] [address] Basophils/100 WBC (Bld) 0.4 % Normal 0.0-2.5 [facility] Comment on above: Performed By: #### M DW, ANEU, CBC, GFR, ADIFF, BMP #### [address] [address] Eosinophil, Absolute 0.2 10 3/mcL Normal 0.0-0.7 [facility] Comment on above: Performed By: #### M DW, ANEU, CBC, GFR, ADIFF, BMP #### [address] [address] Eosinophils/100 WBC (Bld) 2.4 % Normal 0.0-7.0 [facility] Comment on above: Performed By: #### M DW, ANEU, CBC, GFR, ADIFF, BMP #### [address] [address] Lymphocyte, Absolute 3.3 10 3/mcL Normal 0.9-4.3 [facility] Comment on above: Performed By: #### M DW, ANEU, CBC, GFR, ADIFF, BMP #### [address] [address] Lymphocytes/100 WBC (Bld) 40.9 % High 20.0-40.0 [facility] Comment on above: Performed By: #### M DW, ANEU, CBC, GFR, ADIFF, BMP #### [address] [address] Monocyte, Absolute 0.4 10 3/mcL Normal 0.1-1.4 [facility] Comment on above: Performed By: #### M DW, ANEU, CBC, GFR, ADIFF, BMP #### [address] [address] Monocytes/100 WBC (Bld) 5.3 % Normal 2.0-13.0 [facility] Comment on above: Performed By: #### M DW, ANEU, CBC, GFR, ADIFF, BMP #### [place] [address] [place], [place] [address] Neutrophils/100 WBC (Bld) 51.0 % Normal 50.0-75.0 [facility] Comment on above: Performed By: #### M DW, ANEU, CBC, GFR, ADIFF, BMP #### [place] [address] [place], [place] [address] .GFRon 02-29-2024 GFR 113 ml/min/1.73sqm Normal [facility] Comment on above: Result Comment: GFR Population mean for , Non- Americans Ages 20-29 = 116 mL/min/1.73 sq.m. Ages 30-39 = 107 mL/min/1.73 sq.m. Ages 40-49 = 99 mL/min/1.73 sq.m. Ages 50-59 = 93 mL/min/1.73 sq.m. Ages 60-69 = 85 mL/min/1.73 sq.m. Ages 70+ = 75 mL/min/1.73 sq.m. Chronic Kidney Disease: Less than 60 mL/min/1.73 square meters End Stage Renal Disease: Less than 15 mL/min/1.73 square meters Performed By: #### M DW, ANEU, CBC, GFR, ADIFF, BMP #### [address] [address] GFR Non- 94 ml/min/1.73sqm Normal [facility] Comment on above: Result Comment: GFR Population mean for , Non- Americans Ages 20-29 = 116 mL/min/1.73 sq.m. Ages 30-39 = 107 mL/min/1.73 sq.m. Ages 40-49 = 99 mL/min/1.73 sq.m. Ages 50-59 = 93 mL/min/1.73 sq.m. Ages 60-69 = 85 mL/min/1.73 sq.m. Ages 70+ = 75 mL/min/1.73 sq.m. Chronic Kidney Disease: Less than 60 mL/min/1.73 square meters End Stage Renal Disease: Less than 15 mL/min/1.73 square meters Performed By: #### M DW, ANEU, CBC, GFR, ADIFF, BMP #### [address] [address] .MDWon 02-29-2024 Monocyte Distribution Width 16.24 Normal 0.00-20.00 [facility] Comment on above: Result Comment: For ED adult patients suspected of sepsis, MDW<=20.0 does not rule out sepsis or risk of sepsis Performed By: #### M DW, ANEU, CBC, GFR, ADIFF, BMP #### [address] [address] .NEUABSon 02-29-2024 Neutrophil, Absolute 4.1 10 3/mcL Normal 2.3-8.1 [facility] Comment on above: Performed By: #### M DW, ANEU, CBC, GFR, ADIFF, BMP #### [place] [id number] BMPon 02-29-2024 BUN/Creatinine Ratio 16 ratio Normal 7-27 [facility] Comment on above: Performed By: #### M DW, ANEU, CBC, GFR, ADIFF, BMP #### [address] [address] Calcium [Mass/Vol] 9.5 mg/dL Normal 8.4-10.2 [facility] Comment on above: Performed By: #### M DW, ANEU, CBC, GFR, ADIFF, BMP #### [address] [address] Chloride [Moles/Vol] 101 mmol/L Normal 98-107 [facility] Comment on above: Performed By: #### M DW, ANEU, CBC, GFR, ADIFF, BMP #### [address] [address] CO2 [Moles/Vol] 26 mmol/L Normal 22-29 [facility] Comment on above: Performed By: #### M DW, ANEU, CBC, GFR, ADIFF, BMP #### [address] [address] Creatinine [Mass/Vol] 0.76 mg/dL Normal 0.55-1.02 [facility] Comment on above: Result Comment: Test ing performed on Siemens Dimension EXL analyzer using a modified kinetic Matt technique. Performed By: #### M DW, ANEU, CBC, GFR, ADIFF, BMP #### [address] [address] Electrolyte Balance 11.0 mEq/L Normal 4.0-15.0 [facility] Comment on above: Performed By: #### M DW, ANEU, CBC, GFR, ADIFF, BMP #### [place] [address] Glucose [Mass/Vol] 93 mg/dL Normal 70-105 [facility] Comment on above: Performed By: #### M DW, ANEU, CBC, GFR, ADIFF, BMP #### [address] [address] Potassium [Moles/Vol] 3.8 mmol/L Normal 3.5-5.1 [facility] Comment on above: Performed By: #### M DW, ANEU, CBC, GFR, ADIFF, BMP #### [address] [address] Sodium [Moles/Vol] 138 mmol/L Normal 136-145 [facility] Comment on above: Performed By: #### M DW, ANEU, CBC, GFR, ADIFF, BMP #### [address] [address] Urea nitrogen [Mass/Vol] 12 mg/dL Normal 7-18 [facility] Comment on above: Performed By: #### M DW, ANEU, CBC, GFR, ADIFF, BMP #### [address] [address] CBCon 02-29-2024 Erythrocyte distribution width (RBC) [Ratio] 14.2 % Normal 11.5-15.5 [facility] Comment on above: Performed By: #### M DW, ANEU, CBC, GFR, ADIFF, BMP #### [address] [address] Hematocrit (Bld) [Volume fraction] 39.4 % Normal 34.0-46.0 [facility] Comment on above: Performed By: #### M DW, ANEU, CBC, GFR, ADIFF, BMP #### [place] [address] Hgb 12.7 G/dL Normal 12.0-16.0 [facility] Comment on above: Performed By: #### M DW, ANEU, CBC, GFR, ADIFF, BMP #### [place] [address] MCH (RBC) [Entitic mass] 28.2 pg Normal 27.0-33.0 [facility] Comment on above: Performed By: #### M DW, ANEU, CBC, GFR, ADIFF, BMP #### [place] [address] MCHC 32.3 G/dL Normal 32.0-36.0 [facility] Comment on above: Performed By: #### M DW, ANEU, CBC, GFR, ADIFF, BMP #### [place] [address] MCV (RBC) [Entitic vol] 87.4 fL Normal 80.0-99.0 [facility] Comment on above: Performed By: #### M DW, ANEU, CBC, GFR, ADIFF, BMP #### [address] [address] Platelet 234 10 3/mcL Normal 150-450 [facility] Comment on above: Performed By: #### M DW, ANEU, CBC, GFR, ADIFF, BMP #### [address] [address] Platelet mean volume (Bld) [Entitic vol] 8.4 fL Normal 6.6-10.5 [facility] Comment on above: Performed By: #### M DW, ANEU, CBC, GFR, ADIFF, BMP #### [facility] [address] [place], [place] [address] RBC 4.51 10 6/mcL Normal 4.10-5.30 [facility] Comment on above: Performed By: #### M DW, ANEU, CBC, GFR, ADIFF, BMP #### [facility] [address] [place], [place] [address] WBC 8.0 10 3/mcL Normal 4.5-10.8 [facility] Comment on above: Performed By: #### M DW, ANEU, CBC, GFR, ADIFF, BMP #### [facility] [address] [place], [place] [address] CT HEAD OR BRAIN W/O CONTRAS Ton 02-29-2024 CT HEAD OR BRAIN W/O CONTRAST ORIGINAL EXAMINATION: CT OF THE HEAD WITHOUT CONTRAST 02/29/2024 9:34 am TECHNIQUE: CT of the head was performed without the administration of intravenous contrast. Automated exposure control, iterative reconstruction, and/or weight based adjustment of the mA/kV was utilized to reduce the radiation dose to as low as reasonably achievable. COMPARISON: None. HISTORY: ORDERING SYSTEM PROVIDED HISTORY: Reason for Exam: Altered mental status FINDINGS: BRAIN/VENTRICLES: There is no acute intracranial hemorrhage, mass effect or midline shift. No abnormal extra-axial fluid collection. The ceron-white differentiation is maintained without evidence of an acute infarct. There is no evidence of hydrocephalus. ORBITS: The visualized portion of the orbits demonstrate no acute abnormality. SINUSES: The visualized paranasal sinuses and mastoid air cells demonstrate no acute abnormality. SOFT TISSUES/SKULL: No acute abnormality of the visualized skull or soft tissues. IMPRESSION: Normal unenhanced CT examination of the brain. Interpreted by: Gera Moy Preliminary Report By: Gera Moy Electronically signed By Gera Moy Dictated Date: 02/29/2024 9:37:16 AM Prelim Date: 02/29/2024 9:38:25 AM Sign Date: 02/29/2024 9:38:25 AM Ordering Provider: AMBER Birch [facility]ATORYOrdered By: Tarun Spivey on 02-29-2024 Amphetamines Screen Ql (U) Negative *NA* (02/29/24 10:10 AM) Invalid Interpretation Code Negative AO ADM SS Barbiturates Screen Ql (U) Negative *NA* (02/29/24 10:10 AM) Invalid Interpretation Code Negative AO ADM SS Benzodiazepines Ql (U) Negative *NA* (02/29/24 10:10 AM) Invalid Interpretation Code Negative AO ADM SS Benzoylecgonine Screen Ql (U) Negative *NA* (02/29/24 10:10 AM) Invalid Interpretation Code Negative AO ADM SS Cannabinoids Screen Ql (U) Negative *NA* (02/29/24 10:10 AM) Invalid Interpretation Code Negative AO ADM SS Methadone Screen Ql (U) Negative *NA* (02/29/24 10:10 AM) Invalid Interpretation Code Negative AO ADM SS Opiates Screen Ql (U) Negative *NA* (02/29/24 10:10 AM) Invalid Interpretation Code Negative AO ADM SS Phencyclidine Ql (U) Negative *NA* (02/29/24 10:10 AM) Invalid Interpretation Code Negative AO ADM SS Urine Drugs screened: See Below 3 (02/29/24 10:10 AM) Normal AO Chemistry S Comment on above: Interpretive Data: T his drug screen is a presumptive screening only. No confirmation will be performed unless requested. Drugs screened include: Threshold Amphetamines/Methamphetamines 1,000 ng/mL Barbiturates 200 ng/mL Benzodiazepine metabolites 200 ng/mL Cannabinoids (THC metabolites) 50 ng/mL Cocaine 300 ng/mL Opiates 300 ng/mL Methadone 300 ng/mL Phencyclidine (PCP) 25 ng/mL Testing has been performed FOR MEDICAL PURPOSES ONLY. LABORATORYOrdered By: Anabelle Juarez on 02-29-2024 Appearance (U) Clear (02/29/24 10:10 AM) Normal Clear AO Auto Urine SS Bilirubin Ql (U) Negative (02/29/24 10:10 AM) Normal Negative AO Auto Urine SS Color (U) Yellow (02/29/24 10:10 AM) Normal AO Auto Urine SS Glucose Test strip (U) [Mass/Vol] Negative Normal Negative AO Auto Urine SS HCG ( test) Ql Negative (02/29/24 10:10 AM) Normal AO Manual Urine SS Hemoglobin Auto test strip (U) [Mass/Vol] Negative (02/29/24 10:10 AM) Normal Negative AO Auto Urine SS Ketones Ql (U) Negative Normal Negative AO Auto Urine SS test (u) int Not detected Invalid Interpretation Code AO Manual Urine SS UA Leuk Est Negative (02/29/24 10:10 AM) Normal Negative AO Auto Urine SS UA Nitrite Negative (02/29/24 10:10 AM) Normal Negative AO Auto Urine SS UA pH 6.0 (02/29/24 10:10 AM) Normal 5.0 - 8.0 AO Auto Urine SS UA Protein Negative Normal Negative AO Auto Urine SS UA Spec Grav 1.010 *ABN* (02/29/24 10:10 AM) Invalid Interpretation Code 1.015-1.025 AO Auto Urine SS UA Specimen Type Clean Catch (02/29/24 10:10 AM) Normal AO Auto Urine SS UA Urobilinogen 0.2 E.U./dL Normal 0.2-1.0 AO Auto Urine SS LABORATORYOrdered By: SYSTEM SYSTEM on 02-29-2024 Basophils (Bld) [#/Vol] 0.0 103/mcL Normal 0.0 - 0.2 10^3/mcL AO Workflow SS Basophils/100 WBC (Bld) 0.4 % Normal 0.0 - 2.5 % AO Workflow SS Calcium [Mass/Vol] 9.5 mg/dL Normal 8.4 - 10. 2 mg/dL AO ADM SS Chloride [Moles/Vol] 101 mmol/L Normal 98 - 10 7 mmol/L AO ADM SS CO2 [Moles/Vol] 26 mmol/L Normal 22 - 29 mmol/L AO ADM SS Creatinine [Mass/Vol] 0.76 mg/dL Normal 0.55 - 1.02 mg/dL AO ADM SS Comment on above: Interpretive Data: T esting performed on Siemens Dimension EXL analyzer using a modified kinetic Matt technique. Electrolyte Balance 11.0 mEq/L Normal 4.0 - 15 .0 mEq/L AO ADM SS Eosinophil, Absolute 0.2 103/mcL Normal 0.0 - 0 .7 10^3/mcL AO Workflow SS Eosinophils/100 WBC (Bld) 2.4 % Normal 0.0 - 7.0 % AO Workflow SS Erythrocyte distribution width (RBC) [Ratio] 14.2 % Normal 11.5 - 15.5 % AO Workflow SS GFR/1.73 sq M.predicted among blacks MDRD (S/P/Bld) [Vol rate/Area] 113 ml/min/1.73sqm Invalid Interpretation Code AO Chemistry S Comment on above: Interpretive Data: GFR Population mean for , Non- Americans Ages 20-29 = 116 mL/min/1.73 sq.m. Ages 30-39 = 107 mL/min/1.73 sq.m. Ages 40-49 = 99 mL/min/1.73 sq.m. Ages 50-59 = 93 mL/min/1.73 sq.m. Ages 60-69 = 85 mL/min/1.73 sq.m. Ages 70+ = 75 mL/min/1.73 sq.m. Chronic Kidney Disease: Less than 60 mL/min/1.73 square meters End Stage Renal Disease: Less than 15 mL/min/1.73 square meters GFR/1.73 sq M.predicted among non-blacks MDRD (S/P/Bld) [Vol rate/Area] 94 ml/min/1.73sqm Invalid Interpretation Code AO Chemistry S Comment on above: Interpretive Data: GFR Population mean for , Non- Americans Ages 20-29 = 116 mL/min/1.73 sq.m. Ages 30-39 = 107 mL/min/1.73 sq.m. Ages 40-49 = 99 mL/min/1.73 sq.m. Ages 50-59 = 93 mL/min/1.73 sq.m. Ages 60-69 = 85 mL/min/1.73 sq.m. Ages 70+ = 75 mL/min/1.73 sq.m. Chronic Kidney Disease: Less than 60 mL/min/1.73 square meters End Stage Renal Disease: Less than 15 mL/min/1.73 square meters Glucose [Mass/Vol] 93 mg/dL Normal 70 - 105 mg/dL AO ADM SS Hematocrit (Bld) [Volume fraction] 39.4 % Normal 34.0 - 46.0 % AO Workflow SS Hemoglobin (Bld) [Mass/Vol] 12.7 G/dL Normal 12.0 - 16.0 G/dL AO Workflow SS Lymphocytes (Bld) [#/Vol] 3.3 103/mcL Normal 0.9 - 4.3 10^3/mcL AO Workflow SS Lymphocytes/100 WBC (Bld) 40.9 % High 20.0 - 40.0 % AO Workflow SS MCH (RBC) [Entitic mass] 28.2 pg Normal 27.0 - 33.0 pg AO Workflow SS MCHC 32.3 G/dL Normal 32.0 - 36.0 G/dL AO Workflow SS MCV (RBC) [Entitic vol] 87.4 fL Normal 80.0 - 99.0 fL AO Workflow SS Monocyte distribution width Auto (Bld) [Entitic vol] 16.24 1 Normal 0.00 - 20.00 AO Workflow SS Comment on above: Result Comment: For ED adult patients suspected of sepsis, MDW<=20.0 does not rule out sepsis or risk of sepsis Monocytes (Bld) [#/Vol] 0.4 103/mcL Normal 0.1 - 1.4 10^3/mcL AO Workflow SS Monocytes/100 WBC (Bld) 5.3 % Normal 2.0 - 13.0 % AO Workflow SS Neutrophils (Bld) [#/Vol] 4.1 103/mcL Normal 2.3 - 8.1 10^3/mcL AO Workflow SS Neutrophils/100 WBC (Bld) 51.0 % Normal 50.0 - 75.0 % AO Workflow SS Platelet mean volume (Bld) [Entitic vol] 8.4 fL Normal 6.6 - 10.5 fL AO Workflow SS Platelets (Bld) [#/Vol] 234 103/mcL Normal 150 - 450 10^3/mcL AO Workflow SS Potassium [Moles/Vol] 3.8 mmol/L Normal 3.5 - 5.1 mmol/L AO ADM SS RBC (Bld) [#/Vol] 4.51 106/mcL Normal 4.10 - 5.3 0 10^6/mcL AO Workflow SS Sodium [Moles/Vol] 138 mmol/L Normal 136 - 145 mmol/L AO ADM SS Urea nitrogen [Mass/Vol] 12 mg/dL Normal 7 - 18 mg/dL AO ADM SS Urea nitrogen/Creatinine [Mass ratio] 16 ratio Normal 7 - 27 ratio AO ADM SS WBC (Bld) [#/Vol] 8.0 103/mcL Normal 4.5 - 10.8 10^3/mcL AO Workflow SS PREGUon 02-29-2024 HCG ( test) Ql (U) Negative Normal [facility] Comment on above: Performed By: #### U DRUG, PREGU, UA #### [place] [id number] [place], [place] [address] test (u) int Not detected Invalid Interpretation Code [facility] Comment on above: Performed By: #### U DRUG, PREGU, UA #### [address] [address] UAon 02-29-2024 Color (U) Yellow Normal [facility] Comment on above: Performed By: #### U DRUG, PREGU, UA #### [address] [address] Glucose (U) [Mass/Vol] Negative Normal Negative [facility] Comment on above: Performed By: #### U DRUG, PREGU, UA #### [address] [address] Ketones Ql (U) Negative Normal Negative [facility] Comment on above: Performed By: #### U DRUG, PREGU, UA #### [place] [address] UA Appear Clear Normal Clear [facility] Comment on above: Performed By: #### U DRUG, PREGU, UA #### [address] [address] UA Blood Negative Normal Negative [facility] Comment on above: Performed By: #### U DRUG, PREGU, UA #### [address] [address] UA Leuk Est Negative Normal Negative [facility] Comment on above: Performed By: #### U DRUG, PREGU, UA #### [address] [address] UA Nitrite Negative Normal Negative [facility] Comment on above: Performed By: #### U DRUG, PREGU, UA #### [place] [address] UA pH 6.0 Normal 5.0 - 8.0 [facility] Comment on above: Performed By: #### U DRUG, PREGU, UA #### [place] [address] UA Protein Negative Normal Negative [facility] Comment on above: Performed By: #### U DRUG, PREGU, UA #### [address] [address] UA Spec Grav 1.010 Abnormal 1.015-1.025 [facility] Comment on above: Performed By: #### U DRUG, PREGU, UA #### [address] [address] UA Specimen Type Clean Catch Normal [facility] Comment on above: Performed By: #### U DRUG, PREGU, UA #### [place] [address] UA Urobilinogen 0.2 E.U./dL Normal 0.2-1.0 [facility] Comment on above: Performed By: #### U DRUG, PREGU, UA #### [place] [address] Urobilinogen (U) [Mass/Vol] Negative Normal Negative [facility] Comment on above: Performed By: #### U DRUG, PREGU, UA #### [place] [address] UDRUGon 02-29-2024 Amphetamine (u) Negative Normal Negative [facility] Comment on above: Performed By: #### U DRUG, PREGU, UA #### [place] [address] Barbiturate (u) Negative Normal Negative [facility] Comment on above: Performed By: #### U DRUG, PREGU, UA #### [place] [address] Benzodiazepine (u) Negative Normal Negative [facility] Comment on above: Performed By: #### U DRUG, PREGU, UA #### [place] [address] Cannabinoid (u) Negative Normal Negative [facility] Comment on above: Performed By: #### U DRUG, PREGU, UA #### [place] [address] Cocaine Ql (U) Negative Normal Negative [facility] Comment on above: Performed By: #### U DRUG, PREGU, UA #### [address] [address] Methadone Ql (U) Negative Normal Negative [facility] Comment on above: Performed By: #### U DRUG, PREGU, UA #### [address] [address] Opiate (u) Negative Normal Negative [facility] Comment on above: Performed By: #### U DRUG, PREGU, UA #### [address] [address] PCP (u) Negative Normal Negative [facility] Comment on above: Performed By: #### U DRUG, PREGU, UA #### [address] [address] Urine Drugs screened: See Below Normal [facility] Comment on above: Result Comment: This drug screen is a presumptive screening only. No confirmation will be performed unless requested. Drugs screened include: Threshold Amphetamines/Methamphetamines 1,000 ng/mL Barbiturates 200 ng/mL Benzodiazepine metabolites 200 ng/mL Cannabinoids (THC metabolites) 50 ng/mL Cocaine 300 ng/mL Opiates 300 ng/mL Methadone 300 ng/mL Phencyclidine (PCP) 25 ng/mL Testing has been performed FOR MEDICAL PURPOSES ONLY. Performed By: #### U DRUG, PREGU, UA #### [address] [address] No Panel Informationon 12-20 Culture Urine >100,000 cfu/ml Staphylococcus saprophyticus Routine sensitivity testing of urine isolates of S.saprophyticus is not advised because infections respond respond to concentrations achieved in urine of antimicrobial agents commonly used to treat acute, uncomplicated urinary tract infections (e.g., nitrofurantoin, fluoroquinolone, or trimethoprim +/- sulfamethoxazole). [facility] Work Phone: Staphylococcus saprophyticus Staphylococcus saprophyticus [facility] Work Phone: No Panel InformationOrdered By: Guille Baig on 10-10-2023 Affirm Pathogens DNA Direct Probe Gardnerella vaginalis DNA Probe Positive Chiara species DNA Probe Negative Trichomonas vaginalis DNA Probe Negative [facility] No Panel Informationon 10-02 Culture Urine No growth at 48 hours. [facility] Work Phone: Ex Chef Cytology Reporton 2023 Ex Chef Cytology Report . Pathology Reports Accession: Collected Date/Time: Received Date/Time: Pathologist: [id number] 08/08/2023 10:16 EDT 08/08/2023 18:00 EDT Ex Chef Cytology Report SPECIMEN: Specimen Description: Liquid Prep Reflex ASCUS+ Specimen: Cervical Screening or Diagnostic: Screening RELEVANT HISTORY: LMP: on going SPECIMEN ADEQUACY: SATISFACTORY FOR EVALUATION Endocervical/Transforma tional zone component absent/insufficient INTERPRETATION/RESULTS: NEGATIVE FOR INTRAEPITHELIAL LESION OR MALIGNANCY COMMENT: This Pap Test was successfully processed and evaluated with the assistance of the [employer] ThinPrep Test Imaging System. Electronically Signed by Pathology report verified by [facility] Screened by: [place] Electronically signed by Melissa EVANS (ASCP) Sign-Out Date: 08/14/2023 11:37 Performing Lab: [facility], [address] [place] [address] Pathology Dept Disclaimer The Pap test is a screening test for cervical cancer. As evidenced by published data, it is subject to both inherent false negative and false positive results. Your patient's results should be interpreted in context with pertinent clinical history including gynecological examination. Normal [facility] ([place]) CTPCRon 08-10-2023 C. trachomatis Interp Normal See CT Interp N [facility] ([place]) Comment on above: Result Comment: C. t rachomatis DNA not detected. Specimen is presumptive negative for C. trachomatis. A negative result does not preclude C. trachomatis infection because results depend on adequate specimen collection, absence of inhibitors, and sufficient DNA to be detected. See CT Interp N Performed By: #### N GPCR1, CTPCR #### [address] [address] C.trachomatis PCR Negative Normal Negative [facility] ([place]) Comment on above: Result Comment: Mole cular (PCR) assay performed on the Janine Any 4800 system. Performed By: #### N GPCR1, CTPCR #### [address] [address] Chlam Source Urine Normal [facility] ([place]) Comment on above: Performed By: #### N GPCR1, CTPCR #### [address] [address] [id number] 08-10-2023 GC PCR Source Urine Normal [facility] ([place]) Comment on above: Performed By: #### N GPCR1, CTPCR #### [address] [address] N. gonorrhoeae (PCR) Negative Normal Negative [facility] ([place]) Comment on above: Result Comment: Alec jeffreyar (PCR) assay performed on the Janine Any 4800 System. Performed By: #### N GPCR1, CTPCR #### [place] [id number] N. gonorrhoeae Interp Normal See NG Interp N [facility] ([place]) Comment on above: Result Comment: N. g onorrhoeae DNA not detected. Specimen is presumptive negative for N. gonorrhoeae. A negative result does not preclude Neisseria gonorrhoeae infection because results depend on adequate specimen collection, absence of inhibitors, and sufficient DNA to be detected. See NG Interp N Performed By: #### N GPCR1, CTPCR #### [place] [address] TRVAMPon 08-10-2023 Trich vag LILO Negative Normal Negative [facility] ([place]) Comment on above: Result Comment: Perf ormed At: =G [facility] [address] [facility] [place] [id number] Shyam Bey MD Ph:[phone] Performed By: #### 1 [id number] #### Justino [address] [place], [place] [address] HEPACon 08-09-2023 Hep A IgM Ab Non-Reactive Normal Non-Reactiv e [facility] ([place]) Comment on above: Performed By: #### L IPID, GLU ####[address] [place], [place] [address]#### HEPAC, RPR ####[facility] [place] [address] Hep A IgM Ab Int [facility] ([place]) Comment on above: Result Comment: No s erological evidence of a current Hepatitis A infection. See Interp Performed By: #### L IPID, GLU ####[address] [place] [id number]#### HEPAC, RPR ####[facility] [place] [address] Hep B Core IgM Ab Non-Reactive Normal Non-Reacti v [facility] ([place]) Comment on above: Performed By: #### L IPID, GLU ####[address]ino [address] [address]#### HEPAC, RPR ####[place] [address] Hep B Core IgM Ab Int Normal [facility] ([place]) Comment on above: Result Comment: Samp les with a value < 0.80 Index are considered nonreactive (negative) for IgM antibodies to hepatitis B core antigen. See Interp Performed By: #### L IPID, GLU ####Just[address] [place] [id number]#### HEPAC, RPR ####[place] [address] Hep B Surf Ag Non-Reactive Normal Non-Reactiv [facility] ([place]) Comment on above: Performed By: #### L IPID, GLU ####[address] [place], [place] [address]#### HEPAC, RPR ####[address] [address] Hep C Ab Non-Reactive Normal Non-Reactiv [facility] ([place]) Comment on above: Performed By: #### L IPID, GLU ####[address] [place] [id number]#### HEPAC, RPR ####[place] [address] Hep C Ab Int Normal [facility] ([place]) Comment on above: Result Comment: Nonr eactive: Samples with a value < 0.80 are considered nonreactive (negative) for antibodies to HCV. A negative test result does not exclude the possibility of exposure to or infection with HCV. HCV antibodies may be undetectable in some stages of the infection and in some clinical conditions. See Interp Performed By: #### L IPID, GLU ####[place] [address]#### HEPAC, RPR ####[place] [address] RPRon 08-09-2023 Reagin Ab RPR Ql (S) Non-Reactive Normal Non-Tori ctiv e [facility] ([place]) Comment on above: Result Comment: The RPR test is a non-treponemal assay useful as an aid in the diagnosis of primary and secondary syphilis. It converts to positive generally within 2 weeks after the appearance of a lesion. This test is also useful for monitoring response to antibiotic therapy. A positive RPR screening test will be followed by the FTA ABS test. False positive RPR tests may occur in 1) patients with underlying autoimmune disorders, 2) elderly patients, 3) , and 4) other conditions with abnormal serum globulins. Performed By: #### L IPID, GLU #### [place] [id number] #### HEPAC, RPR #### [place] [address] GLUon 08-08-2023 Glucose [Mass/Vol] 84 mg/dL Normal 70-105 [facility] ([place]) Comment on above: Performed By: #### L IPID, GLU #### [place] [address] #### HEPAC, RPR #### [place] [address] HIVRPon 08-08-2023 HIV p24 Antigen Non-Reactive Normal Non-Reactiv [facility] ([place]) Comment on above: Result Comment: Dete ction of p24 may be inhibited by biotin in the sample, causing false negative results in acute infection. Therefore do not test samples from patients who are taking biotin. Performed By: #### H IVRP #### [address] [address] HIV P24 Int Non-Reactive Invalid Interpretation Code [facility] ([place]) Comment on above: Performed By: #### H IVRP #### [place] [address] Rapid HIV 1/2 Antibody Non-Reactive Normal Non-R eactiv e [facility] ([place]) Comment on above: Performed By: #### H IVRP #### [place] [address] RHIV 1/2 Ab Int Non-Reactive Invalid Interpretation Code [facility] ([place] Comment on above: Performed By: #### H IVRP #### [place] [address] LABORATORYOrdered By: Shirin Villar on 08-08-2023 C. trachomatis DNA LILO+probe Ql (Unsp spec) Negative 7 (08/08/23 1:58 PM) Normal Negative Auto Viro/Sero SS Comment on above: Interpretive Data: M olecular (PCR) assay performed on the Janine Any 4800 system. C. trachomatis DNA LILO+probe Ql (Unsp spec) C. trachomatis DNA not detected. Specimen is presumptive negative forC. trachomatis.A negative result does not preclude C. trachomatis infection becauseresults depend on adequate specimen collection, absence of inhibitors,and sufficient DNA to be detected. Normal See CT Interp N AH Auto Viro/Sero SS N. gonorrhoeae DNA LILO+probe Ql (Unsp spec) Negative 6 (08/08/23 1:58 PM) Normal Negative AH Auto Viro/Sero SS Comment on above: Interpretive Data: M olecular (PCR) assay performed on the Janine Any 4800 System. N. gonorrhoeae DNA LILO+probe Ql (Unsp spec) N. gonorrhoeae DNA not detected. Specimen is presumptive negative forN. gonorrhoeae. A negative result does not preclude Neisseria gonorrhoeaeinfection because results depend on adequate specimen collection, absenceof inhibitors, and sufficient DNA to be detected. Normal See NG Interp N AH Auto Viro/Sero SS Reagin Ab RPR Ql (S) Non-Reactive 4 (08/08/23 12:02 PM) Normal AH Man Viro/Sero SS Comment on above: Interpretive Data: T he RPR test is a non-treponemal assay useful as an aid in the diagnosis of primary and secondary syphilis. It converts to positive generally within 2 weeks after the appearance of a lesion. This test is also useful for monitoring response to antibiotic therapy. A positive RPR screening test will be followed by the FTA ABS test. False positive RPR tests may occur in 1) patients with underlying autoimmune disorders, 2) elderly patients, 3) , and 4) other conditions with abnormal serum globulins. LABORATORYOrdered By: [employer] P CONTRIBUTOR_SYSTEM on 08-08-2023 Trich vag LILO (LC) Negative Invalid Interpretation Code Negative AO Sendouts SS Comment on above: Result Comment: [facility] [address] [place], [place] [id number] Shyam Bey MD Ph:[phone] LABORATORYOrdered By: Mile Petty on 08-08-2023 Trich Vag Source (LC) Urine (08/08/23 1:58 PM) Normal AO Sendouts SS LABORATORYOrdered By: Frank mcallister on 08-08-2023 HIV 1 p24 Ab Ql (S) Non-Reactive 5 (08/08/23 12:04 PM) Normal AO Rapid Testing SS Comment on above: Interpretive Data: D etection of p24 may be inhibited by biotin in the sample, causing false negative results in acute infection. Therefore do not test samples from patients who are taking biotin. HIV 1 p24 Ab Ql (S) Non-Reactive Invalid Interpretation Code AO Rapid Testing SS HIV 1+2 Ab IA Ql Non-Reactive Invalid Interpretation Code AO Rapid Testing SS HIV 1+2 Ab IA.rapid Ql (Unsp spec) Non-Reactive (08/08/23 12:04 PM) Normal AO Rapid Testing SS LABORATORYOrdered By: Fidel Ambriz on 08-08-2023 Cholesterol [Mass/Vol] 174 mg/dL Normal 0 - 2 00 mg/dL AO ADM SS Comment on above: Interpretive Data: C holesterol Reference Interval: Less than 200 Desirable 200-239 Borderline high risk 240 and above High risk Cholesterol in HDL [Mass/Vol] 63 mg/dL High 40 - 60 mg/dL AO ADM SS Cholesterol in LDL [Mass/Vol] 101 mg/dL Normal 0 - 130 mg/dL AO ADM SS Triglyceride [Mass/Vol] 48 mg/dL Normal 0 - 150 mg/dL AO ADM SS Comment on above: Interpretive Data: T riglyceride Reference Interval: Less than 150 Normal 150-199 Borderline high risk 200-499 High risk 500 or higher Very high risk LABORATORYOrdered By: SYSTEM SYSTEM on 08-08-2023 Glucose [Mass/Vol] 84 mg/dL Normal 70 - 105 mg/dL AO ADM SS LABORATORYOrdered By: Unique Tay on 08-08-2023 HAV IgM IA Ql Non-Reactive (08/08/23 12:02 PM) Normal Non-Reactiv e AH ADM SS HAV IgM IA Ql No serological evide nce of a current Hepatitis A infection. Invalid Interpretation Code Chemistry S HBV core IgM IA Ql Non-Reactive (08/08/23 12:02 PM) Normal Non-Reactiv e AH ADM SS HBV core IgM IA Ql Samples with a value < 0.80 Index are considered nonreactive (negative) for IgM antibodies to hepatitis B core antigen. Normal Chemistry S HBV surface Ag IA Ql Non-Reactive (08/08/23 12:02 PM) Normal Non-Reactiv e AH ADM SS HCV Ab IA Ql Non-Reactive (08/08/23 12:02 PM) Normal Non-Reactiv e AH ADM SS HCV Ab IA Ql Nonreactive: Samples with a value < 0.80 are considered nonreactive (negative) for antibodies to HCV.A negative test result does not exclude the possibility of exposure to or infection with HCV. HCV antibodies may be undetectable in some stages of the infection and in some clinical conditions. Invalid Interpretation Code Chemistry S LIPIDon 08-08-2023 Cholesterol [Mass/Vol] 174 mg/dL Normal 0-200 [facility] ([place]) Comment on above: Result Comment: Chol esterol Reference Interval: Less than 200 Desirable 200-239 Borderline high risk 240 and above High risk Performed By: #### L IPID, GLU #### [place] [address] #### HEPAC, RPR #### [address] [address] Cholesterol in HDL [Mass/Vol] 63 mg/dL High 40-60 [facility] ([place]) Comment on above: Performed By: #### L IPID, GLU #### [address] [address] #### HEPAC, RPR #### [address] [address] Cholesterol in LDL [Mass/Vol] 101 mg/dL Normal 0-130 [facility] ([place]) Comment on above: Performed By: #### L IPID, GLU #### [address] [address] #### HEPAC, RPR #### [address] [address] Triglyceride [Mass/Vol] 48 mg/dL Normal 0-150 [facility] ([place]) Comment on above: Result Comment: Trig lyceride Reference Interval: Less than 150 Normal 150-199 Borderline high risk 200-499 High risk 500 or higher Very high risk Performed By: #### L IPID, GLU #### [address] [address] #### HEPAC, RPR #### [address] [address] Laboratory - Specimen inform ationOrdered By: Anne-Marie Villar on 08-08-2023 Specimen source Nom (Unsp spec) Urine (08/08/23 1:58 PM) Normal AH Auto Viro/Sero SS TRVAMPon 08-08-2023 Trich Vag Source Urine Normal [facility] ([place]) Comment on above: Performed By: #### 1 [id number] #### [address] [address] Vital Signs Date Time Vital Sign Value Performing Clinician Facility 07-25-2024 03:09-0400 Body temperature 97.9 [degF] Dr. Gema Hernandez DO Work Phone: [facility] 07-25-2024 03:09-0400 Diastolic blood pressure 81 mm[Hg] Dr. Gema Hernandez DO Work Phone: [facility] 07-25-2024 03:09-0400 Heart rate 85 /min Dr. Gema Hernandez DO Work Phone: [facility] 07-25-2024 03:09-0400 Respiratory rate 15 /min Dr. Gema Hernandez DO Work Phone: [facility] 07-25-2024 03:09-0400 SaO2% (BldA) [Mass fraction] 96 % Dr. Gema Hernandez DO Work Phone: [facility] 07-25-2024 03:09-0400 Systolic blood pressure 138 mm[Hg] Dr. Gema Hernandez DO Work Phone: [facility] 07-24-2024 23:45-0400 Body height 157.[address] Gema Hernandez DO Work Phone: [facility] 07-24-2024 23:45-0400 Body mass index (BMI) [Ratio] 40.2 kg/m2 Dr. Gema Hernandez DO Work Phone: [facility] 07-24-2024 23:45-0400 Body weight 99.[address] Gema Hernandez DO Work Phone: [facility] 02-29-2024 11:31-0500 Blood Pressure Location AMBER NOVAK MD [facility] 02-29-2024 11:31-0500 Blood Pressure Method AMBER NOVAK MD [facility] 02-29-2024 11:31-0500 Diastolic Blood Pressure Non-Invasive 89 mm[Hg] AMBER NOVAK MD [facility] 02-29-2024 11:31-0500 Heart rate 76 /min AMBER NOVAK MD [facility] 02-29-2024 11:31-0500 Respiratory rate 18 /min AMBER NOVAK MD [facility] 02-29-2024 11:31-0500 Systolic Blood Pressure Non-Invasive 127 mm[Hg] AMBER NOVAK MD [facility] 02-29-2024 08:57-0500 Blood Pressure Location AMBER NOVAK MD [facility] 02-29-2024 08:57-0500 Blood Pressure Method AMBER NOVAK MD [facility] 02-29-2024 08:57-0500 Body temperature 98.06 [degF] AMBER NOVAK MD [facility] 02-29-2024 08:57-0500 Body weight 95 kg AMBER NOVAK MD [facility] 02-29-2024 08:57-0500 Diastolic Blood Pressure Non-Invasive 91 mm[Hg] AMBER NOVAK MD [facility] 02-29-2024 08:57-0500 Heart rate 81 /min AMBER NOVAK MD [facility] 02-29-2024 08:57-0500 Respiratory rate 18 /min AMBER NOVAK MD [facility] 02-29-2024 08:57-0500 Systolic Blood Pressure Non-Invasive 138 mm[Hg] AMBER NOVAK MD [facility] 10-02-2023 05:19-0400 Body temperature 97.88 [degF] TREMAYNE MEADOWS MD [facility] 10-02-2023 05:19-0400 Diastolic Blood Pressure Non-Invasive 70 mm[Hg] TREMAYNE MEADOWS MD [facility] 10-02-2023 05:19-0400 Heart rate 75 /min TREMAYNE MEADOWS MD [facility] 10-02-2023 05:19-0400 Respiratory rate 20 /min TREMAYNE MEADOWS MD [facility] 10-02-2023 05:19-0400 Systolic Blood Pressure Non-Invasive 125 mm[Hg] TREMAYNE MEADOWS MD [facility] Encounters Encounter Date Encounter Type Care Provider Facility Start: 08-06-2024 End: 08-10-2024 ambulatory LESLIE MAST [employer] Facility:[facility] Start: 08-06-2024 End: 08-10-2024 Outreach Lab LESLIE MAST [employer] [facility] Start: 07-24-2024 End: 07-25-2024 Emergency department patient visit Dr. Gema Hernandez DO Work Phone: -Emergency Department Work Phone: Start: 02-29-2024 End: 02-29-2024 Emergency department patient visit AMBER NOVAK MD [facility] Start: 12-21-2023 End: 12-25-2023 ambulatory LESLIE MAST [employer] Facility:[facility] Start: 12-21-2023 End: 12-25-2023 Outreach Lab CORRIE FINN [employer] [facility] Start: 10-10-2023 End: 10-14-2023 ambulatory LESLIE MAST [employer] Facility:B Start: 10-10-2023 End: 10-14-2023 Outreach Lab LESLIE MAST [employer] [facility] Start: 10-03-2023 End: 10-07-2023 ambulatory LESLIE MAST [employer] Facility:[facility] Start: 10-03-2023 End: 10-07-2023 Outreach Lab LESLIE MAST [employer] [facility] Start: 10-02-2023 End: 10-02-2023 Emergency department patient visit TREMAYNE MEADOWS MD [facility] Start: 08-08-2023 End: 08-12-2023 ambulatory LESLIE MAST [employer] Facility:B Start: 08-08-2023 End: 08-12-2023 Outreach Lab LESLIE MAST [employer] [facility] Procedures Date Procedure Procedure Detail Performing Clinician Start: 07-25-2024 CT angiography of he ad and neck Dr. Gema Hernandez DO Work Phone: Plan of Treatment Date Care Activity Detail Author Start: 07-25-2024 [facility] Patient Education ED ALOC ED Confusion [facility] Work Phone: Patient referral [facility] Work Phone: Immunizations Immunization Date Immunization Notes Care Provider Noah pinedo 08-01-2023 tetanus toxoid, redu annia diphtheria toxoid, and acellular pertussis vaccine, adsorbed; Translations: [Boostrix (Tdap)] [facility] CORPORATE COMMUNICATIONS [employer] [facility] 04-16-2021 SARS-CoV-2 (COVID-19 ) mRNA-1273 vaccine; Translations: [Moderna COVID-19 Vaccine] [facility]3] CORPORATE COMM[employer] [facility] Payers Date Payer Category Payer Self-pay 2023 Private Health Insurance [id number] 2023 Private Health Insurance [id number] 2021 Medicaid [id number] 1999 Unknown [id number] 2.16.8 [id number] 1999 Unknown [id number] 2.16.8 [id number] 1999 Unknown [id number] 2.16.8 [id number] 1999 Unknown [id number] 2.16.8 [id number] 1999 Unknown [id number] 2.16.8 [id number] 1999 Unknown [id number] 2.16.8 [id number] 1999 Unknown [id number] 2.16.8 [id number] Unknown [id number] 2.16.8 [id number] Social History Date Type Detail Facility Start: 08-01-2023 End: 08-06-2024 Tobacco smoking status Never smoked tobacco (finding) [facility] Start: 2000 Sex Assigned At Female A [facility] Start: 09-16-2018 End: 07-25-2024 Sex Female (finding) [facility] Sexual Orientation Justino hays [facility] Functional Status Date Assessment Result Facility 02-29-2024 Functional Status Independent Justino chapman [facility] 02-29-2024 Functional Status ID band on, Call device within reach, Bed in low position, Wheels locked, Upper/Half-Length side-rails up, Visitor at bedside, Safety level maintained [facility] 10-02-2023 Functional Status ID band on, Call device within reach, Bed in low position, Wheels locked, Upper/Half-Length side-rails up, Phone within reach, personal items within reach, Bedside Cart Locked [facility] Mental Status Date Assessment Result Facility 07-25-2024 Cognitive function Level Of Cons ciousness Awake;Alert;Appropriate;Follow s Commands [facility] Work Phone: 02-29-2024 Mental Status Orientation Oriented x 4 [facility] 02-29-2024 Mental Status [facility] 10-02-2023 Mental Status Oriented x 4 [facility] Clinical Notes 04-11-2023 to 08-09-2024 LaboratoryLaboratoryLaboratoryLaboratoryLaboratory Note Date & Type Note Facility 08-09-2024 Note . MICRO - Microbiology PROCEDURE: Urine Culture [*1] SOURCE: Urine, Clean Catch BODY SITE: COLLECTED DATE/TIME: 08/06/2024 14:00 EDT RECEIVED DATE/TIME: 08/06/2024 18:39 EDT START DATE/TIME: 08/06/2024 18:39 EDT FREE TEXT SOURCE: FINAL REPORTS Final Report [] Verified Date/Time/Personnel: 08/09/2024 08:51 EDT >100,000 cfu/ml Escherichia coli >100,000 cfu/ml Group B Beta Hemolytic Strep (Strep agalactiae) Sensitivity testing is not recommended for one of the following reasons: 1. Established susceptibility patterns are available or 2. Interpretative criteria are not available. PRELIMINARY REPORTS Preliminary Report [] Verified Date/Time/Personnel: 08/08/2024 13:18 EDT >100,000 cfu/ml Escherichia coli VON to follow >100,000 cfu/ml Group B Beta Hemolytic Strep (Strep agalactiae) Sensitivity testing is not recommended for one of the following reasons: 1. Established susceptibility patterns are available or 2. Interpretative criteria are not available. Preliminary Report [] Verified Date/Time/Personnel: 08/07/2024 08:26 EDT Culture results pending. Preliminary Report [] Verified Date/Time/Personnel: 08/06/2024 19:59 EDT Specimen received in lab. SUSCEPTIBILITY RESULTS Escherichia coli Antibiotic VON Dilut VON Inter Ampicillin <=8 Susceptible Ampicillin/ <=4/2 Susceptible Sulbactam Aztreonam <=4 Susceptible Cefazolin <=2 Susceptible Ceftazidime/ <=4 Susceptible Avibactam Ceftolozane/ <=2 Susceptible Tazobactam Ciprofloxacin <=0.25 Susceptible Ertapenem <=0.5 Susceptible Gentamicin <=2 Susceptible ID Panel Not Not Applicable Applicable Imipenem <=1 Susceptible Levofloxacin <=0.5 Susceptible Meropenem <=1 Susceptible Minocycline <=4 Susceptible Nitrofurantoin <=32 Susceptible Trimethoprim/ <=0.5/9.5 Susceptible Sulfa Performing Locations *1: This test was performed at: [address], [facility] , [facility] 07-25-2024 Radiology Diagnostic study note [facility] Imaging Services [address] [place] [id number] STROKE CTA Head AND Neck W/Con MR#: [id number] Acct: [id number] Name: RA MARTIN CAMPOS Rep #: [id number] : 2000 F 23 From: Juan Luis Mccoy MD PCP: Care Physician,No Primary Status: REG ER Study:STROKE CTA Head AND Neck W/Con Date of Exam: 07/25/24 Exam# [id number] Ordering Dr: Javan Hernandez DO PROCEDURE: STROKE CTA HEAD AND NECK W/CON 07/25/2024 REASON FOR EXAM: TRANSIENT EPISDOE OF CONFUSION TECHNIQUE: CTA imaging of the head and neck from the aortic arch to the skull vertex with out constrast and with intravenous contrast. Coronal and Sagittal reconstruction series were provided. 3D post processing with reformations, Maximum intensity projection (MIPs) Volume rendering and Shaded surface rendering was provided. CONTRAST: 100 cc Isovue 370 IV One or more dose reduction techniques were used (e.g., Automated exposure control, adjustment of the mA and/or kV according to patient size, use of iterative reconstruction technique). RADIATION DOSE SUMMARY: CTDlvol: 86 mGy DLP: 1482.79 mGycm COMPARISON: None available FINDINGS: Noncontrast head CT: No intracranial hemorrhage, mass effect or CT evidence of large vascular territory acute infarct. The ventricles are within limits and midline. CSF spaces appear within limits. The paranasal sinuses, mastoids and orbits appear within limits. CTA head and neck: [place] artifact from right-sided bolus. Motion artifact at the aortic arch with the arch and standard three-vessel origin appearing within limits as visualized. The vertebral arteries arise from the right brachiocephalic and left subclavian as expected and appear codominant. The cervical vertebrals are patent throughout with both contributing to the basilar artery. The right and left common, internal and external carotid arteries appear within limits without flow significant stenosis or dissection. The anterior, posterior and middle cerebral circulations appear intact. No vessel cut off, flow significant stenosis or aneurysm identified. Major dural venous sinuses appear within limits. Visualized upper lungs appear clear. CT/STROKE CTA Head AND Neck W/Con IMPRESSION: No intracranial hemorrhage, mass effect or CT evidence of large vascular territory acute infarct. CTA of the head and neck appears intact without flow significant stenosis, dissection, aneurysm or vessel cut off as above. Findings discussed by phone by myself with Dr. Mcfarland at 1:30 a.m. 07/25/2024 Reading Location: [id number] CC: Dr. Gema Hernandez, DO; No Primary Care Physician ~ Personal Support Worker: Signed [facility] 02-29-2024 Hospital Discharge instructions Patient Education 02/29/2024 11:13:56 Confusion Confusion Confusion or delirium is a change in a person s ability to think clearly. There may be trouble recognizing familiar people and places or knowing what day it is. Memory, judgment, and decision-making may also be affected. In severe cases, the person may have limited or no response to being spoken to. Confusion usually appears over a few days and can vary throughout the day. It can last weeks to months. Confusion is usually a sign of an underlying problem. It may occur suddenly. Or it may develop gradually over time. Causes of confusion include brain injury, medicines, alcohol, withdrawal from certain medicines or illegal drugs, and infection. Heart attack and stroke may cause it. Confusion can also be a sign of dementia or a mental illness. Treatment will depend on the cause of the problem. If the issue is a medicine, stopping the medicine may help. Thiamine supplement may help with very little risk of side effects. Haloperidol is useful but people with Parkinson disease should not use it. Benzodiazepines are only used in people undergoing alcohol withdrawal. Home care Be sure someone is with the confused person at all times. He or she should not be left alone or unsupervised. Tell the healthcare provider about all medicines that the person takes. These include prescription, gibg-vlk-rfplits, herbs, and supplements. Dehydration can increase confusion. Ask the healthcare provider how much fluid the person should be drinking. Offer liquids and ensure that they are taken. Keep all medicines in a secure place under the caregiver s control. To prevent overdose, a confused person should take medicines only under the supervision of a caregiver. To help a person with confusion: oEstablish a daily routine. Change can be a source of stress for someone with confusion. Make and keep a time schedule for common tasks such as bathing, dressing, taking medicines, meals, going for walks, shopping, naps and bed time. Make sure that the person has glasses and hearing aids if needed. oDon't use physical restraints. oSpeak slowly and clearly with a gentle tone of voice. Use short simple words and sentences. Ask one question at a time. Don'tt interrupt, criticize or argue. Be calm and supportive. Use friendly facial expressions. Use pointing and touching to help communicate. If there has been loss of long-term memory, don't ask questions about past events. This would only cause frustration for the person. oUse lists, signs, family photos, clocks and calendars as memory aids. Label cabinets and drawers. Try to distract, not confront, the person. When he or she becomes frustrated or upset, redirect attention to eating or some other activity of interest. oIf this proves to be due to a permanent condition, talk to the healthcare provider or a order processor about getting a Power of Environmental Health Sanitarian for healthcare and for financial decisions. It is best to do this while the person can still sign legal documents and make his or her own decisions. Otherwise, a court order will be required. Follow-up care Follow up with the person's healthcare provider or as advised for further testing or changes in medical care. When to seek medical advice Call the healthcare provider for any of the following: Frequent falling Refusal to eat or drink Increased drowsiness Nausea or vomiting Unexplained fever over 100.4 F (38.0 C) or as directed by the healthcare provider Call 911 Call 911 or emergency services right away if any of the following occur: Violent behavior or behavior too hard to manage at home New hallucinations or delusions complains of severe headache or numbness or weakness of the face, arm, or leg Slurred speech or trouble speaking, walking, or seeing Fainting spell, dizziness, or seizure [id number] [employer]. [address] [place] [address]. All rights reserved. This information is not intended as a substitute for professional medical care. Always follow your healthcare professional's instructions. Follow Up Care 02/29/2024 08:52:28 With:LESLIE LANE Address: [address] [place] [phone] When:2-4 days [facility] 02-29-2024 Note Discharge Instructions Thank you for allowing [facility] to assist you with your healthcare needs. The following is important discharge information regarding your hospital visit. Diagnosis from Today's Visit Episode of confusion What to Do Next Instructions from Your Care Team No qualifying data available. Post Acute Orders No qualifying data available. You Need to Schedule the Following Appointments Follow Up with LESLIE LANE When:Within 2-4 days Where:[address] [place] [phone] Allergies NKA Medications Please ask your primary doctor or pharmacist before taking any other medication not listed, including over the counter drugs, herbal medications, vitamins and or supplements as they may interact with your home medications. Please take this list to your next doctor s visit. Bring all medications you take, including over the counter medications, herbals and other supplements with you to your doctor s visit. Patients and families are reminded to discard old lists and to update any records with all medication providers or retail pharmacies. Education Materials Confusion Confusion or delirium is a change in a person s ability to think clearly. There may be trouble recognizing familiar people and places or knowing what day it is. Memory, judgment, and decision-making may also be affected. In severe cases, the person may have limited or no response to being spoken to. Confusion usually appears over a few days and can vary throughout the day. It can last weeks to months. Confusion is usually a sign of an underlying problem. It may occur suddenly. Or it may develop gradually over time. Causes of confusion include brain injury, medicines, alcohol, withdrawal from certain medicines or illegal drugs, and infection. Heart attack and stroke may cause it. Confusion can also be a sign of dementia or a mental illness. Treatment will depend on the cause of the problem. If the issue is a medicine, stopping the medicine may help. Thiamine supplement may help with very little risk of side effects. Haloperidol is useful but people with Parkinson disease should not use it. Benzodiazepines are only used in people undergoing alcohol withdrawal. Home care Be sure someone is with the confused person at all times. He or she should not be left alone or unsupervised. Tell the healthcare provider about all medicines that the person takes. These include prescription, htsv-rzj-ocutizt, herbs, and supplements. Dehydration can increase confusion. Ask the healthcare provider how much fluid the person should be drinking. Offer liquids and ensure that they are taken. Keep all medicines in a secure place under the caregiver s control. To prevent overdose, a confused person should take medicines only under the supervision of a caregiver. To help a person with confusion: oEstablish a daily routine. Change can be a source of stress for someone with confusion. Make and keep a time schedule for common tasks such as bathing, dressing, taking medicines, meals, going for walks, shopping, naps and bed time. Make sure that the person has glasses and hearing aids if needed. oDon't use physical restraints. oSpeak slowly and clearly with a gentle tone of voice. Use short simple words and sentences. Ask one question at a time. Don'tt interrupt, criticize or argue. Be calm and supportive. Use friendly facial expressions. Use pointing and touching to help communicate. If there has been loss of long-term memory, don't ask questions about past events. This would only cause frustration for the person. oUse lists, signs, family photos, clocks and calendars as memory aids. Label cabinets and drawers. Try to distract, not confront, the person. When he or she becomes frustrated or upset, redirect attention to eating or some other activity of interest. oIf this proves to be due to a permanent condition, talk to the healthcare provider or a order processor about getting a Power of Environmental Health Sanitarian for healthcare and for financial decisions. It is best to do this while the person can still sign legal documents and make his or her own decisions. Otherwise, a court order will be required. Follow-up care Follow up with the person's healthcare provider or as advised for further testing or changes in medical care. When to seek medical advice Call the healthcare provider for any of the following: Frequent falling Refusal to eat or drink Increased drowsiness Nausea or vomiting Unexplained fever over 100.4 F (38.0 C) or as directed by the healthcare provider Call 911 Call 911 or emergency services right away if any of the following occur: Violent behavior or behavior too hard to manage at home New hallucinations or delusions complains of severe headache or numbness or weakness of the face, arm, or leg Slurred speech or trouble speaking, walking, or seeing Fainting spell, dizziness, or seizure [id number] [employer]. [address] [place] [address]. All rights reserved. This information is not intended as a substitute for professional medical care. Always follow your healthcare professional's instructions. Additional Information VACCINATE! IT SAVES LIVES! Members of the community who have not yet received the COVID-19 vaccine and would like to receive it can visit one of [facility] vaccine clinics. There are many vaccine clinic locations within the [facility]. For locations and available times, please visit [email or web address] gov/. It is important to note that some COVID mobile vaccine clinics are held outdoors and may be canceled in rainy or stormy conditions. To learn more about pediatric vaccinations (ages 5-11), we invite you to visit the [facility] webpage. https://www.[facility].org/p ages/5412-Pujzc-Hcghdndsqij-Freq qeppdw-Kbzwr-Qqbukzcxr.html To learn more about the COVID-19 vaccine, we invite you to visit the CDC website for a list of frequently asked questions. https://www.cdc.gov/coronavirus/ 2019-ncov/vaccines/faq.html [facility] Patient Portal Access Instructions: Stay connected with your healthcare team and access your personal medical information anytime with the [facility] Patient Portal. If you would like a full copy of your medical records please contact the [facility] Medical Records Department Monday through Monday between 8a.m. and 4:30p.m. Please follow the directions below to access the portal: 1.Access the email account you provided upon registration to the [facility].2.Look for an invitation email from [facility].3.Open the email and access the invitation link: Accept Invitation to [facility].Fill in the required mcfadden to create your account. Sign into [email or web address] with your username and password that you created in the above steps to stay up to date. You can then view a summary of results, a summary of your visits, and the ability to download your summaries to your computer or send the information securely to a physician. Remember that your healthcare information is confidential, so carefully consider who you will allow to register on the [facility] Patient Portal for access to your information. You can also access the [facility] Patient Portal on the [employer]. Simply click on Health Records under Health Data and then click on the [employer] logo. HOW TO SAFELY DISPOSE OF PRESCRIPTION MEDICATIONS Please use one of the following methods to safely dispose of your unused medications. 1.Use a drug disposal kit: the drug disposal pouch allows you to safely discard your old and unused drugs. Ask your nurse to give you one when you are discharged.2.Visit a local take-back location: Many local pharmacies and police departments have programs that collect old and unwanted prescription drugs. Call your local pharmacy or go to http://bit.[employer]/7C0Ry2v to find one close to you.3.Make use of household items: Use cat litter or old coffee grounds to dispose medications if other options are not available. Mix your drugs with these household products, seal them in an airtight container and throw it into the garbage. Call [facility]: [phone] to be sure your drugs can be disposed of in this way. Some medicines may require a different approach.4.Never flush your medications down the toilet. IF YOU HAVE BEEN PRESCRIBED AN OPIOIDS FOR PAIN If you have been prescribed an opioid (such as hydrocodone, oxycodone or morphine), it is critical to understand the possible side effects and risks of opioid pain medications. Even when taken as directed, opioids can have several side effects including: Tolerance, meaning you might need to take more of a medication for the same pain relief. Nausea, vomiting and/or constipation. Sleepiness, dizziness, dry mouth, confusion, depression or itching. Physical dependence, meaning you have withdrawal symptoms when a medication is stopped ? this can develop within a few days. KNOW YOUR RESPONSIBILITIES It is important to know exactly how much and how often to take the opioid pain medications you are prescribed. Never take opioids in higher amounts or more often than prescribed. Do not combine opioids with alcohol or other drugs that cause drowsiness, such as benzodiazepines, also known as benzos, including diazepam and alprazolam, muscle relaxants or sleep aids. Never sell or share prescription opioids. This is illegal. Store opioids in a secure place and out of reach of others (including children, family, friends and visitors). The last page(s) of this document has been signed and retained as a CHART COPY Signatures Patient Education Materials Confusion Medication Leaflets My discharge plan and instructions have been reviewed and explained to me and IBETH RA TAWAN understand my current condition and have read and understand these discharge instructions. I have received a written copy of the plan/instructions. If I have questions, I am aware that I should contact my doctor. Patient/Equipment Operator/Laborer/Supervisor Signature: Date/Time: Relationship to Patient: Witness Name/Signature: Date/Time: [facility] 02-29-2024 Note ORIGINAL EXAMINATION: CT OF THE HEAD WITHOUT CONTRAST 02/29/2024 9:34 am TECHNIQUE: CT of the head was performed without the administration of intravenous contrast. Automated exposure control, iterative reconstruction, and/or weight based adjustment of the mA/kV was utilized to reduce the radiation dose to as low as reasonably achievable. COMPARISON: None. HISTORY: ORDERING SYSTEM PROVIDED HISTORY: Reason for Exam: Altered mental status FINDINGS: BRAIN/VENTRICLES: There is no acute intracranial hemorrhage, mass effect or midline shift. No abnormal extra-axial fluid collection. The ceron-white differentiation is maintained without evidence of an acute infarct. There is no evidence of hydrocephalus. ORBITS: The visualized portion of the orbits demonstrate no acute abnormality. SINUSES: The visualized paranasal sinuses and mastoid air cells demonstrate no acute abnormality. SOFT TISSUES/SKULL: No acute abnormality of the visualized skull or soft tissues. IMPRESSION: Normal unenhanced CT examination of the brain. Interpreted by: Gera Moy Preliminary Report By: Gera Moy Electronically signed By Gera Moy Dictated Date: 02/29/2024 9:37:16 AM Prelim Date: 02/29/2024 9:38:25 AM Sign Date: 02/29/2024 9:38:25 AM [facility]ing [facility] . MICRO - Microbiology PROCEDURE: Urine Culture [*1] SOURCE: Urine, Clean Catch BODY SITE: COLLECTED DATE/TIME: 12/21/2023 14:32 EDT RECEIVED DATE/TIME: 12/21/2023 18:42 EDT START DATE/TIME: 12/21/2023 18:42 EDT FREE TEXT SOURCE: FINAL REPORTS Final Report [] Verified Date/Time/Personnel: 12/22/2023 11:50 EDT >100,000 cfu/ml Staphylococcus saprophyticus Routine sensitivity testing of urine isolates of S.saprophyticus is not advised because infections respond respond to concentrations achieved in urine of antimicrobial agents commonly used to treat acute, uncomplicated urinary tract infections (e.g., nitrofurantoin, fluoroquinolone, or trimethoprim +/- sulfamethoxazole). SUSCEPTIBILITY RESULTS Staphylococcus saprophyticus Antibiotic VON Dilut VON Inter ID Panel Not Not Applicable Applicable Performing Locations *1: This test was performed at: [address], [id number] , [facility] 10-12-2023 Note . MICRO - Microbiology PROCEDURE: Affirm Pathogens DNA Direct Probe [*1] SOURCE: Vaginal Fluid BODY SITE: Vagina COLLECTED DATE/TIME: 10/10/2023 12:32 EDT RECEIVED DATE/TIME: 10/11/2023 19:03 EDT START DATE/TIME: 10/11/2023 19:03 EDT FREE TEXT SOURCE: FINAL REPORTS Final Report [] Verified Date/Time/Personnel: 10/12/2023 16:08 EDT Gardnerella vaginalis DNA Probe Positive Chiara species DNA Probe Negative Trichomonas vaginalis DNA Probe Negative Performing Locations *1: This test was performed at: [address], [id number] , [facility] ([place]) 10-05-2023 Note . MICRO - Microbiology PROCEDURE: Urine Culture [*1] SOURCE: Urine, Clean Catch BODY SITE: COLLECTED DATE/TIME: 10/03/2023 14:44 EDT RECEIVED DATE/TIME: 10/03/2023 21:14 EDT START DATE/TIME: 10/03/2023 21:14 EDT FREE TEXT SOURCE: FINAL REPORTS Final Report [] Verified Date/Time/Personnel: 10/05/2023 07:33 EDT No growth at 48 hours. PRELIMINARY REPORTS Preliminary Report [] Verified Date/Time/Personnel: 10/04/2023 09:05 EDT No growth to date Performing Locations *1: This test was performed at: [address], [id number] , [facility] ([place]) 10-03-2023 Evaluation + Plan note Future Scheduled TestsAffirm Pathogens DNA Direct Probe 10/03/23IV 2 Ab 08/08/23 [facility] 10-02-2023 Hospital Discharge instructions Patient Education 10/02/2023 05:29:38 Otitis Media, Antibiotic Treatment (Adult) Middle Ear Infection (Adult) You have an infection of the middle ear, the space behind the eardrum. This is also called acute otitis media (AOM). Sometimes it is caused by the common cold. This is because congestion can block the internal passage (eustachian tube) that drains fluid from the middle ear. When the middle ear fills with fluid, bacteria can grow there and cause an infection. Oral antibiotics are used to treat this illness, not ear drops. Symptoms usually start to improve within 1 to 2 days of treatment. Home care The following are general care guidelines: Finish all of the antibiotic medicine given, even though you may feel better after the first few days. You may use vvfk-zju-lsjjbig medicine, such as acetaminophen or ibuprofen, to control pain and fever, unless something else was prescribed. If you have chronic liver or kidney disease or have ever had a stomach ulcer or gastrointestinal bleeding, talk with your healthcare provider before using these medicines. Do not give aspirin to anyone under 18 years of age who has a fever. It may cause severe illness or . Follow-up care Follow up with your healthcare provider, or as advised, in 2 weeks if all symptoms have not gotten better, or if hearing doesn't go back to normal within 1 month. When to seek medical advice Call your healthcare provider right away if any of these occur: Ear pain gets worse or does not improve after 3 days of treatment Unusual drowsiness or confusion Neck pain, stiff neck, or headache Fluid or blood draining from the ear canal Fever of 100.4 F (38 C) or as advised Seizure [id number] [employer]. [address] [place] [address]. All rights reserved. This information is not intended as a substitute for professional medical care. Always follow your healthcare professional's instructions. Follow Up Care 10/02/2023 05:14:05 With:LESLIE LANE APRN-CAR WASH ATTENDANT [employer]OMATIC Address: [address] [facility] [place] [phone] When:2-4 days [facility] 10-02-2023 Note Discharge Instructions Thank you for allowing [facility] to assist you with your healthcare needs. The following is important discharge information regarding your hospital visit. Diagnosis from Today's Visit Otitis media of left ear What to Do Next Instructions from Your Care Team No qualifying data available. Post Acute Orders No qualifying data available. You Need to Schedule the Following Appointments Follow Up with LESLIE LANE When:Within 2-4 days Where:[address] [facility] [place] [phone] Allergies NKA Medications Please ask your primary doctor or pharmacist before taking any other medication not listed, including over the counter drugs, herbal medications, vitamins and or supplements as they may interact with your home medications. What How Much When Instructions Last Dose New amoxicillin-clavulanate (amoxicillin-clavulanate 875 mg-125 mg oral tablet) 1 tab(s) by mouth Every 12 hours Duration: 10 Days Pickup at [facility] #[id number] New ibuprofen (ibuprofen 600 mg oral tablet) 1 tab(s) by mouth Every 6 hours as needed for for pain Take with food or milk. Pickup at [facility] #[id number] Pharmacy Information [facility] #[id number]: [address], [place] [id number] [phone] Please take this list to your next doctor s visit. Bring all medications you take, including over the counter medications, herbals and other supplements with you to your doctor s visit. Patients and families are reminded to discard old lists and to update any records with all medication providers or retail pharmacies. Education Materials Middle Ear Infection (Adult) You have an infection of the middle ear, the space behind the eardrum. This is also called acute otitis media (AOM). Sometimes it is caused by the common cold. This is because congestion can block the internal passage (eustachian tube) that drains fluid from the middle ear. When the middle ear fills with fluid, bacteria can grow there and cause an infection. Oral antibiotics are used to treat this illness, not ear drops. Symptoms usually start to improve within 1 to 2 days of treatment. Home care The following are general care guidelines: Finish all of the antibiotic medicine given, even though you may feel better after the first few days. You may use hmrt-jxk-mutlehj medicine, such as acetaminophen or ibuprofen, to control pain and fever, unless something else was prescribed. If you have chronic liver or kidney disease or have ever had a stomach ulcer or gastrointestinal bleeding, talk with your healthcare provider before using these medicines. Do not give aspirin to anyone under 18 years of age who has a fever. It may cause severe illness or . Follow-up care Follow up with your healthcare provider, or as advised, in 2 weeks if all symptoms have not gotten better, or if hearing doesn't go back to normal within 1 month. When to seek medical advice Call your healthcare provider right away if any of these occur: Ear pain gets worse or does not improve after 3 days of treatment Unusual drowsiness or confusion Neck pain, stiff neck, or headache Fluid or blood draining from the ear canal Fever of 100.4 F (38 C) or as advised Seizure 2781-5009 [employer]. [address] [place] [address], [place] [address]. All rights reserved. This information is not intended as a substitute for professional medical care. Always follow your healthcare professional's instructions. Additional Information VACCINATE! IT SAVES LIVES! Members of the community who have not yet received the COVID-19 vaccine and would like to receive it can visit one of [facility] vaccine clinics. There are many vaccine clinic locations within the [facility]. For locations and available times, please visit [email or web address] [email or web address] It is important to note that some COVID mobile vaccine clinics are held outdoors and may be canceled in rainy or stormy conditions. To learn more about pediatric vaccinations (ages 5-11), we invite you to visit the [facility] webpage. https://www.[facility].org/p ages/8605-Ypito-Tzlfuvxtkwk-Freq ypzlaz-Kdwus-Ujukoaxrp.html To learn more about the COVID-19 vaccine, we invite you to visit the CDC website for a list of frequently asked questions. https://www.cdc.gov/coronavirus/ 2019-ncov/vaccines/faq.html [facility] Access Instructions: Stay connected with your healthcare team and access your personal medical information anytime with the [facility]. If you would like a full copy of your medical records please contact the [facility] Medical Records Department Monday through Monday between 8a.m. and 4:30p.m. Please follow the directions below to access the portal: 1.Access the email account you provided upon registration to the [facility].2.Look for an invitation email from [facility].3.Open the email and access the invitation link: Accept Invitation to [facility].Fill in the required mcfadden to create your account. Sign into [email or web address] with your username and password that you created in the above steps to stay up to date. You can then view a summary of results, a summary of your visits, and the ability to download your summaries to your computer or send the information securely to a physician. Remember that your healthcare information is confidential, so carefully consider who you will allow to register on the [facility] for access to your information. You can also access the [facility] on the [employer]. Simply click on Health Records under Health Data and then click on the [employer] logo. HOW TO SAFELY DISPOSE OF PRESCRIPTION MEDICATIONS Please use one of the following methods to safely dispose of your unused medications. 1.Use a drug disposal kit: the drug disposal pouch allows you to safely discard your old and unused drugs. Ask your nurse to give you one when you are discharged.2.Visit a local take-back location: Many local pharmacies and police departments have programs that collect old and unwanted prescription drugs. Call your local pharmacy or go to http://[employer]/5N5Iz3i to find one close to you.3.Make use of household items: Use cat litter or old coffee grounds to dispose medications if other options are not available. Mix your drugs with these household products, seal them in an airtight container and throw it into the garbage. Call [facility]: [phone] to be sure your drugs can be disposed of in this way. Some medicines may require a different approach.4.Never flush your medications down the toilet. IF YOU HAVE BEEN PRESCRIBED AN OPIOIDS FOR PAIN If you have been prescribed an opioid (such as hydrocodone, oxycodone or morphine), it is critical to understand the possible side effects and risks of opioid pain medications. Even when taken as directed, opioids can have several side effects including: Tolerance, meaning you might need to take more of a medication for the same pain relief. Nausea, vomiting and/or constipation. Sleepiness, dizziness, dry mouth, confusion, depression or itching. Physical dependence, meaning you have withdrawal symptoms when a medication is stopped ? this can develop within a few days. KNOW YOUR RESPONSIBILITIES It is important to know exactly how much and how often to take the opioid pain medications you are prescribed. Never take opioids in higher amounts or more often than prescribed. Do not combine opioids with alcohol or other drugs that cause drowsiness, such as benzodiazepines, also known as benzos, including diazepam and alprazolam, muscle relaxants or sleep aids. Never sell or share prescription opioids. This is illegal. Store opioids in a secure place and out of reach of others (including children, family, friends and visitors). The last page(s) of this document has been signed and retained as a CHART COPY Signatures Patient Education Materials Otitis Media, Antibiotic Treatment (Adult) Medication Leaflets My discharge plan and instructions have been reviewed and explained to me and IBETH RA TAWAN understand my current condition and have read and understand these discharge instructions. I have received a written copy of the plan/instructions. If I have questions, I am aware that I should contact my doctor. Patient/Equipment Operator/Laborer/Supervisor Signature: Date/Time: Relationship to Patient: Witness Name/Signature: Date/Time: [facility] 08-08-2023 Evaluation + Plan note Future Scheduled TestsHIV 1/2 Ab 08/08/23 [facility] 04-11-2023 Evaluation + Plan note Future Scheduled TestsHIV 1/2 Ab 08/08/23 [facility] Evaluation + Plan note Future Appointments Appointment Date:10/03/2023 10:00:00 AM Scheduled Provider:LESLIE LANE Location:[facility] Appointment Type:PC Acute Future Scheduled TestsHIV 1/2 Ab 08/08/23 [facility] Evaluation + Plan note Future Appointments Appointment Date:10/22/2024 11:30:00 AM Scheduled Provider:LESLIE LANE Location:[facility] Appointment Type:PC OV Future Scheduled TestsBasic Metabolic Panel 11/05/24 [facility] Evaluation note No assessment inform ation available [facility] Work Phone: Hospital course Narrative No data available for this section [facility] Hospital Discharge instructions No data available for this section [facility] Hospital Discharge instructions Additional Instructions Patient drinking plenty of fluids. Your workup today was largely normal. At this time we feel like it is safe for you to follow-up outpatient with your family doctor. If you do not have 1 you were given referral for 1. He also given referral for neurology given you have had 2 episodes like this. [facility] Work Phone: Progress note No data available for this section [facility] Reason for referral (narrative) No reason for referral information available [facility] Work Phone: Summary Purpose Family History No Family History Records Found Advance Directives Advance Directive Response Recorded Date/ Time Living Will No July 25, 2024 12:00am Do you have a Healthcare Power of Environmental Health Sanitarian? No July 25, 2024 12:00am Chief Complaint and Reason for Visit Chief Complaint Admit Date CONFUSION July 24, 2024 11: 44pm Additional Source Comments Patient Care team informatio n (unrecognized section and content) Care Team Personnel Name: LESLIE LANE Position: P4 Advanced Lead Blender Member Role: Primary Care Physician Address: [address] [place] [address]- [place] Telecom: Care Team Related Persons Name: DOTTIE CAMPOS Team Status: Active Member Role Status Dates No Primary Care Physician Primary Care Provider Active Team Status: Inactive Member Role Status Dates Dr. Gema Hernandez DO Emergency Provider Active Start: July 24, 2024 End: July 25, 2024 No Primary Care Physician Primary Care Provider Active Start: July 24, 2024 End: July 25, 2024 INFORMATION SOURCE (unrecogn ized section and content) DATE CREATED AUTHOR 11/01/2023 [facility] ([place]) DATE CREATED AUTHOR AUTHOR'S ORGANIZ ATION 08/02/2024 [facility] DATE CREATED AUTHOR AUTHOR'S ORGANIZ ATION 08/13/2024 [facility] Goals (unrecognized section and content) Goals may be documented in a n alternate section FOR RECORDS PERTAINING TO PATIENTS WHO ARE OR HAVE BEEN ENROLLED IN A CHEMICAL DEPENDENCY/SUBSTANCEABUSE PROGRAM, SOME INFORMATION MAY BE OMITTED. This clinical summary was aggregated from multiple sources. Caution should be exercised in using it in the provision of clinical care. This summary normalizes information from multiple sources, and as a consequence, information in this document may materially change the coding, format and clinical context of patient data. In addition, data may be omitted in some cases. CLINICAL DECISIONS SHOULD BE BASED ON THE PRIMARY CLINICAL RECORDS. [facility]. provides no warranty or guarantee of the accuracy or completeness of information in this document.
[2025-03-29 03:50] VITALS: BP 156/88; PULSE 60; RESP 20; TEMP 36.6; O2SAT 100
== END 2025-03-29 03:52 | disposition home or self-care (01) ==
LOC: ED 03:38
PROVIDERS: Emergency Provider Specialist/Technologist Athletic Trainer; Visit Provider Specialist/Technologist Athletic Trainer
DX: R51.9 Headache, unspecified (principal); H53.8 Other visual disturbances
CPT/HCPCS: 70450; 80048; 84703; 85025; 96360; 96361; 99282; A4216